=== PATIENT | female | born 1990 | race Caucasian/White ===

== ENCOUNTER 2017-10-14 13:05 | Emergency (ER) | payer SELFPAY ==
[2017-10-14 13:13] VITALS: BMI 25.6
[2017-10-14 13:18] VITALS: BP 113/67; PULSE 86; RESP 20; TEMP 98.1; O2SAT 99
--- NOTE | 2017-10-14 15:25 | C.PDOC ---
History Of Present Illness 27 yr old female presents to the ER with complaints of left sided abdominal pain on and off for the past 1 week. Patient is a and approximately 19 weeks . Patient states she recently found out she was . Patient also reports of a rash to her inner thighs. Denies fever, chills, nausea, vomiting, dysuria, vaginal discharge or vaginal bleeding. Time Seen by Provider: 10/14/17 13:29 Chief Complaint (Nursing): Abdominal Pain History Per: Patient History/Exam Limitations: no limitations Onset/Duration Of Symptoms: Intermittent Episodes (1 week) Past Medical History Reviewed: Historical Data, Nursing Documentation, Vital Signs Vital Signs: Last Vital Signs Temp 98.1 F 10/14/17 13:13 Pulse 86 10/14/17 13:13 Resp 20 10/14/17 13:13 BP 113/67 10/14/17 13:13 Pulse Ox 99 10/14/17 15:29 - Medical History PMH: Anxiety, Asthma, Depression - [facility] Procedures DETOXIFICATION SERVICES FOR SUBSTANCE ABUSE TREATMENT (09/02/16) Family History: States: No Known Family Hx - Social History Hx Tobacco Use: Yes Hx Alcohol Use: No Hx Substance Use: No - Immunization History Hx Tetanus Toxoid Vaccination: No Hx Influenza Vaccination: No Review Of Systems Except As Marked, All Systems Reviewed And Found Negative. Constitutional: Negative for: Fever, Chills Gastrointestinal: Positive for: Abdominal Pain (left sided). Negative for: Nausea, Vomiting Genitourinary: Negative for: Dysuria, Vaginal Discharge, Vaginal Bleeding Skin: Positive for: Rash (to the inner thighs) Physical Exam - Physical Exam Appears: Non-toxic, No Acute Distress Skin: Warm, Dry, Rash (papular rashes noted medial aspect of bilateral thighs) Head: Atraumatic, Normacephalic Oral Mucosa: Moist Cardiovascular: Rhythm Regular, No Murmur Respiratory: Normal Breath Sounds, No Rales, No Rhonchi, No Stridor, No Wheezing Gastrointestinal/Abdominal: Soft, No Tenderness, No Guarding, No Rebound, Other (fundus approximately at the umbilicus level) Back: Normal Inspection, No CVA Tenderness Extremity: Normal ROM, No Swelling Neurological/Psych: Oriented x3, Normal Speech ED Course And Treatment O2 Sat by Pulse Oximetry: 99 (RA) Pulse Ox Interpretation: Normal Medical Decision Making Medical Decision Making: NOTE: Patient left before US was done. States she did not wish to wait for the US report. Disposition - Disposition Referrals: [facility] Elsie Sravani, [Non-Staff] - Disposition: HOME/ ROUTINE Disposition Time: 14:30 Condition: GOOD Additional Instructions: Thank you for letting us take care of you today. The emergency medical care you received today was directed at your acute symptoms. If you were prescribed any medication, please fill it and take as directed. It may take several days for your symptoms to resolve. Return to the Emergency Department if your symptoms worsen, do not improve, or if you have any other problems. Please contact your doctor or call one of the physicians/clinics you have been referred to that are listed on the Patient Visit Information form that is included in your discharge packet. Bring any paperwork you were given at discharge with you along with any medications you are taking to your follow up visit. Our treatment cannot replace ongoing medical care by a primary care provider (PCP) outside of the emergency department. Thank you for allowing the [facility] team to be part of your care today. Follow up with your doctor in 3-4 days for re-evaluation and further management. Prescriptions: Cephalexin [cephalexin] 500 mg PO Q8 #21 cap Instructions: Folliculitis (ED) Forms: [employer] (Bengali) - Clinical Impression Clinical Impression: Folliculitis - Scribe Statement The provider has reviewed the documentation as recorded by the Candelaria Ly Provider Attestation: All medical record entries made by the Candelaria were at my direction and personally dictated by me. I have reviewed the chart and agree that the record accurately reflects my personal performance of the history, physical exam, medical decision making, and the department course for this patient. I have also personally directed, reviewed, and agree with the discharge instructions and disposition.
== END 2017-10-14 15:06 | disposition home or self-care (01) ==
LOC: C.ER 13:05
DX: O26.892 Other specified pregnancy related conditions, second trimester (principal); Z3A.19 19 weeks gestation of pregnancy; L73.9 Follicular disorder, unspecified

== ENCOUNTER 2018-02-23 13:00 | Emergency (ER) | payer MEDICAID ==
[2018-02-23 14:04] VITALS: BMI 31.1
[2018-02-23 15:00] LABS: SQUAMOUS EPITHIAL 1 /hpf (0-5); URINE BACTERIA MANY (<OCC); URINE BILIRUBIN NEGATIVE (NEGATIVE); URINE BLOOD 1+ (NEGATIVE); URINE CLARITY Hazy (Clear); URINE COLOR Yellow (YELLOW); URINE GLUCOSE (UA) NORMAL (Normal); URINE LEUKOCYTE ESTERASE 1+ Leu/uL (Negative); URINE PROTEIN NEGATIVE (NEGATIVE); URINE UROBILINOGEN NORMAL mg/dL (0.2-1.0)
--- NOTE | 2018-02-23 15:14 | OBHP ---
Datetime: 02/23/2018 14:17 IP Adm Impression: Term, intrauterine IP Admit Plan: Observation/Evaluation Admit Comment, IP Provider: [id number]@ 38 weeks presents today with complaints of maternal discomfor t for the past 2 days. Pt states that she did not get for the last 3 months because she was incarcerated. PT denies any vaginal bleeding or leaking of fluid. PNC: no care for the last 3 months POBHx: none PGYNHx: no hx of stds PSHx: C/S x 2 2003 C/S #8 2005 C/S #8 Social Hx: on methadone PMHx: heroin abuser. Meds: methadone ALL; NKDA. A/P: 28 @ 38 weeks by EDC March 12 here with maternal discomfort. 1) VSS: afebrile. 2) No contractions. 3) IV hydration. 4) closed/long/hi 5) Category 1 tracing. 6) UA-> +UTI script for keflex given to the patient. 7) IV hydrate pt, recheck in one hour. and no cervical change then discharge home. 8) Pt to get care this week. 9) Return 39 weeks for repeat C/S. 10) discharge home. Pelvic Type - PN: Adequate Extremities - PN: Normal Abdomen - PN: Normal Back - PN: Normal Breast - PN: Normal Lungs - PN: Normal Heart - PN: Normal Thyroid - PN: Normal Neurologic - PN: Normal HEENT - PN: Normal General - PN: Normal FHR - Baseline A Provider: 150 Membranes, Provider: Ruptured Comments, ACOG Physical Exam: SVE: closed/long/hi Gestation - Est Wks by US: 38.0 EGA AdmitDate IP: 38.0 Vital Signs Provider: Reviewed IP Chief Complaint: Maternal discomfort NICHD Variability Prov Fetus A: Moderate 6-25bpm NICHD Accel Fetus A IP Provider: 15X15 FHR Category Provider Fetus A: Category I NICHD Decel Fetus A IP Provider: None Dilatation, Provider: closed Genitourinary Exam: Normal DTRs - PN: Normal
[2018-02-23] MEDS ORDERED: Lactated Ringer's 1,000 ML IV ONE (15:42)
[2018-02-23 19:56] VITALS: BP 119/78; PULSE 70; RESP 18; TEMP 97.6; O2SAT 97
== END 2018-02-23 15:20 | disposition home or self-care (01) ==
LOC: C.EROB 13:00
DX: O26.93 Pregnancy related conditions, unspecified, third trimester (principal); Z3A.38 38 weeks gestation of pregnancy

== ENCOUNTER 2018-03-02 07:30 | Inpatient (IN) | payer MEDICAID ==
[2018-03-02] MEDS ORDERED: Lactated Ringer's 1,000 ML IV SCH (08:15)
[2018-03-02 10:07] LABS: BASO # 0.1 K/uL (0.0-0.2); HEMOGLOBIN 13.4 g/dL (11.0-16.0); MEAN CORPUSCULAR HEMOGLOBIN 28.1 pg (27.0-31.0)
[2018-03-02 10:16] LABS: BASO % 0.5 % (0.0-2.0); EOS # 0.2 K/uL (0.0-0.7); EOS % 2.3 % (0.0-4.0); LYMPH # 1.7 K/uL (1.0-4.3); LYMPH % 16.5 % (20.0-40.0); MEAN CELL VOLUME 83.1 fL (81.0-99.0); MEAN CORPUSCULAR HGB CONC 33.8 g/dL (33.0-37.0); MEAN PLATELET VOLUME 11.3 fL (7.2-11.7); MONO # 0.9 K/uL (0.0-0.8); NEUT # 7.5 K/uL (1.8-7.0); NEUT % 71.7 % (50.0-75.0); NRBC % 0.4 % (0.0-2.0); RBC 4.78 Mil/uL (3.80-5.20)
[2018-03-02 10:17] LABS: WHITE BLOOD COUNT 10.5 K/uL (4.8-10.8)
[2018-03-02 10:21] LABS: ALB/GLOB RATIO 0.9 (1.0-2.1); ALBUMIN 3.4 g/dL (3.5-5.0); ALT/SGPT 22 U/L (9-52); AST/SGOT 28 U/L (14-36); BLOOD UREA NITROGEN 4 mg/dL (7-17); CALCIUM 8.9 mg/dl (8.6-10.4); GFR AFRICAN-AMERICAN > 60; GFR NON-AFRICAN AMERICAN > 60
[2018-03-02 10:53] LABS: HEPATITIS B SURFACE AG Negative (NEGATIVE)
[2018-03-02 10:58] LABS: HEPATITIS A IGM NEGATIVE (NEGATIVE); HEPATITIS B CORE AB NEGATIVE (NEGATIVE)
[2018-03-02 11:09] LABS: SQUAMOUS EPITHIAL 4 /hpf (0-5); URINE BILIRUBIN NEGATIVE (NEGATIVE); URINE BLOOD 1+ (NEGATIVE); URINE CLARITY Clear (Clear); URINE COLOR Yellow (YELLOW); URINE GLUCOSE (UA) NORMAL (Normal); URINE LEUKOCYTE ESTERASE NEG Leu/uL (Negative); URINE PROTEIN NEGATIVE (NEGATIVE); URINE UROBILINOGEN NORMAL mg/dL (0.2-1.0)
--- NOTE | 2018-03-02 12:24 | US ---
PROCEDURE: HISTORY: LMP 06/01/2017 COMPARISON: None TECHNIQUE: Transabdominal scanning of the maternal pelvis and a 2nd/ 3rd trimester with image documentation FINDINGS: Fetus: Single intrauterine gestation heart rate: Present at 154 beats per minute presentation: Cephalic Placenta: Anteriorwithout previa or abruption Amniotic fluid : Normal appearing: anatomy: Limited due to late gestation. biometrics: Gestational age by ultrasound: 35 weeks 1 day 2 weeks 3 days Estimated weight: 2562 g 380 g 5 lb 10 oz 14 oz Maternal factors: Uterus: Unremarkable. No myometrial masses Cervix:3.3 cm length Free fluid: None Biophysical profile: Breathin Gross body movements: 2 Limb tone: 2 Amniotic Fluid: 2 Total biophysical profile: 04/12 IMPRESSION: Single intrauterine gestation with normal cardiac activity. presentation - cephalic. No previa . Biophysical profile 04/12
[2018-03-02 12:27] LABS: HEPATITIS C ANTIBODY REACTIVE (NEGATIVE)
[2018-03-02] MEDS ORDERED: Sodium Citrate/Citric Acid 15 ml Sol PO ONE (12:46)
[2018-03-02] MEDS ORDERED: Sodium Citrate/Citric Acid 15 ml Sol ONE (13:01)
[2018-03-02] MEDS ORDERED: cefOXitin IV 2 gm in Saline 2 GM/50 ML BAG IVPB ONE (13:10)
[2018-03-02] MEDS: cefOXitin 2 GM in Sodium Chloride 0.9% 100 ML IV SCH ×2 (13:13→22:13)
--- NOTE | 2018-03-02 13:23 | OBHP ---
Datetime: 03/02/2018 12:04 IP Adm Impression: No Active Labor IP Admit Plan: Observation/Evaluation Admit Comment, IP Provider: Evaluation of patient commenced at 0730 hours. Patient received in bed i n LDR#1, in NAD; FOB present 28 y.o. , LMP unsure, AMOR 03/09/18, EGA 39 weeks, per patient by ultrasound at approximately "6 months'. Patient presents for elective repeat C/S. (+) AFM; denies LOF, VB. Ctx. H/O herione ab use, currently on methadone. Last took methadone 2 days ago. Denies HAs, palpitaions, sweating, diar katarzyna, constipation. States has gone as long as 4 days without methadone. "I want to stop taking it, but they said I had to continue for the baby". care: Patient was incarcerated from 10/2017 and released 02/07/18. Has had no care since her release. Denies any issues while incarcerated. States had visits. States first ult rasound at "6 months; ... that's how they got my due date". At this time, other documented - related visit = Ob ED at , 02/23/18; diagnosed with UTI, given prescription for Keflex. Patient states took the meds as prescribed "all of them". P Ob: C/S x 2: both females. 2003, 8lbs; complicated by eclampsia ("I had the C/S because I had a seizure"). No other seizure activity since. Has never seen a neurologist. 2008, elective repeat, 8lb 7oz; no complications. Both at [facility]. 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 Denies h/o STIs, abnormal Pap, myomata PMH: eclampsia, 2003. Heroine abuse. Denies DM, HTN, asthma, cholesterol PSH: C/S x 2 NKDA Meds: PNV - last dose 0400 hours. Methadone 55 mg - last dose 02/27/18. (Verified with [facility], [facility], ) Soc Hx: denies tobacco, or EtOHuse. H/O heroine abuse age 24 through 10/2017. Currently lives with her mother and her 2 daughters. With FOB x 3 years. Unemployed Fam Hx:Mother alive 53 y.o. Father alive 58y.o. - both, no med issues. No known fam h/o cancer P.E.: as above. WD in NAD. Awake, alert, oriented to time, person and place. Pleasant and omar ative. FOB present Assessment: 28 y.ol P2, 39w by reported AMOR 03/09; h/o heroine abuse, now on methadone; S/P recent i ncarceration. No records available. category 1 tracing. Afebrile, vital signs stable. D/W p atient will obtain the foloowng to determine if will proceed with surgery: 1) continuous EFM 2) contact [facility] for records. To this end, patient to sign consent for release of inform ation/records 3) obtain Ob ultrasound 4) speak with Dr. Petit at [facility] 5) IV hydration. Patient expressed an understanding and agreed. Addendum: 1250 hours: - todays USG: EGA 35w 1d, EFW 2562 grams (5lb 10oz); anterior placenta without praevia. BPP 8/8 - labs noted for H/H 13.4/ A (+). Hep C Reactive. All else wnl/(-) - Obtained records from [facility]'s clinic: Patient had 2 visits, 12/15 and 01/05. Ob sonon 12/15/17 at 28w 3d, AMOR 03/06/18. labs 01/05: A(+), antibody scr een (-); Hgb AA; CF (-); RPR - NR; HIV (-); Rubella immune; HBs Ag (-); Hct 39%; platelets 222. Assessment: In light of the confirmatory Ob ultrasound, confirming is 39w 1d, with h/o 2 prevoius C/S, will proceed with elective repeat C/S at this time. This was discussed wiht patient, w abhijit is happy. R/B/C discussed. consents signed, dated, witnessed and placed in chart. Patient is clini jayne stable. Plan: 1) Admit 2) Abdominal prep and shave 3) Fam togravity 4) Mefoxin data integration developer to O.R. 5) Notify peds 6) Notify anesthesia 7) admission labs (previously snet as part of labs) 8) Patient is data integration developer to O.R. Contraction Comments Provider: iregularly regular, every 6 minutes IP Hx Assessment: No Care EGA AdmitDate IP: 39.0 IP Chief Complaint: Scheduled Section Dilatation, Provider: 0 Effacement, Provider: 30 Station, Provider: -3
[2018-03-02] MEDS ORDERED: Oxytocin 10 Units/ml Inj ONE (13:26)
--- NOTE | 2018-03-02 13:44 | OBADHP ---
Datetime: 03/02/2018 12:04 IP Chief Complaint Other: H/O heroine abuse, on Methadone Admit Comment, IP Provider: Evaluation of patient commenced at 0730 hours. Patient received in bed i n LDR#1, in NAD; FOB present 28 y.o. , LMP unsure, AMOR 03/09/18, EGA 39 weeks, per patient by ultrasound at approximately "6 months'. Patient presents for elective repeat C/S. (+) AFM; denies LOF, VB. Ctx. H/O herione ab use, currently on methadone. Last took methadone 2 days ago. Denies HAs, palpitaions, sweating, diar katarzyna, constipation. States has gone as long as 4 days without methadone. "I want to stop taking it, but they said I had to continue for the baby". care: Patient was incarcerated from 10/2017 and released 02/07/18. Has had no care since her release. Denies any issues while incarcerated. States had visits. States first ult rasound at "6 months; ... that's how they got my due date". At this time, other documented - related visit = Ob ED at [facility], 02/23/18; diagnosed with UTI, given prescription for Keflex. Patient states took the meds as prescribed "all of them". P Ob: C/S x 2: both females. 2003, 8lbs; complicated by eclampsia ("I had the C/S because I had a seizure"). No other seizure activity since. Has never seen a neurologist. 2008, elective repeat, 8lb 7oz; no complications. Both at [facility]. 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 Denies h/o STIs, abnormal Pap, myomata PMH: eclampsia, 2003. Heroine abuse. Denies DM, HTN, asthma, cholesterol PSH: C/S x 2 NKDA Meds: PNV - last took 0400 hours. Methadone 55 mg - last dose 6/25/18. (Verified with [facility], [facility], ) Soc Hx: denies tobacco, or EtOHuse. H/O heroine abuse age 24 through 10/2017. Currently lives with her mother and her 2 daughters. With FOB x 3 years. Unemployed Fam Hx:Mother alive 53 y.o. Father alive 58y.o. - both, no med issues. No known fam h/o cancer P.E.: as above. WD in NAD. Awake, alert, oriented to time, person and place. Pleasant and omar ative. FOB present Assessment: 28 y.o. P2, 39w by reported AMOR 03/09; h/o heroine abuse, now on methadone; S/P recent i ncarceration. No records available. S/P treatment for UTI. Category 1 tracing. Afebrile, vi mariaelena signs stable. D/W patient will obtain the foloowng to determine if will proceed with surgery toda y: 1) continuous EFM 2) contact snf for records. To this end, patient to sign consent for release of record s 3) obtain Ob ultrasound 4) speak with Dr. Petit at [facility] 5) IV hydration. Patient expressed an understanding and agreed. Addendum: 1250 hours: - today's USG: EGA 35w 1d, EFW 2562 grams (5lb 10oz); anterior placenta without praevia. BPP 8/8 - labs noted for H/H 13.4/ A (+). Hep C Reactive. All else wnl/(-) - Obtained records from [facility]'s clinic: Patient had 2 visits, 12/15 and 01/05. Ob sono 12/15/17 at 28w 3d, AMOR 03/06/18. labs 01/05: A(+), antibody scre en (-); Hgb AA; CF (-); RPR - NR; HIV (-); Rubella immune; HBs Ag (-); Hct 39%; platelets 222. Assessment: In light of the confirmatory Ob ultrasound, is 39w 1d, with h/o 2 prevoius C /S, will proceed with elective repeat C/S at this time. This was discussed wiht patient, who is happy . R/B/C discussed. consents signed, dated, witnessed and placed in chart. Patient is clinically stabl e. Note: case D/W Dr. Petit at [facility]: as patient missed 2 days, give half regualr dose = 27.5 mg; this rounded down to 25 mg. This was D/W patient who expressed an understainding and agr ees. Plan: 1) Admit 2) Abdominal prep and shave 3) Fam togravity 4) Mefoxin convention manager to O.R. 5) Notify peds 6) Notify anesthesia 7) admission labs (previously snet as part of labs) 8) Patient is convention manager to O.R. 9 ) Methadone 25 mg p.o. x 1 now, and Q AM Pelvic Type - PN: Adequate Extremities - PN: Normal Abdomen - PN: Normal Back - PN: Normal Breast - PN: Normal Lungs - PN: Normal Heart - PN: Normal Thyroid - PN: Not Done Neurologic - PN: Normal HEENT - PN: Normal General - PN: Normal Presentation-Admit: Vertex FHR - Baseline A Provider: 140 Membranes, Provider: Intact Contraction Comments Provider: iregularly regular, every 6 minutes Comments, ACOG Physical Exam: Skin: (+) Healed/"old" "track [place]. (+) tattooes. Abdomen: Soft. gravid. healed Pfannenstiel scars. Fundal height 38 cm. All other systems reviewed - as per HPI Gestation - Est Wks by US: 39w 1d IP Hx Assessment: No Care Vital Signs Provider: Reviewed IP Chief Complaint: Scheduled Section NICHD Variability Prov Fetus A: Moderate 6-25bpm NICHD Accel Fetus A IP Provider: 15X15 FHR Category Provider Fetus A: Category I NICHD Decel Fetus A IP Provider: None Dilatation, Provider: 0 Effacement, Provider: 30 Station, Provider: -3 Genitourinary Exam: Normal DTRs - PN: Not Done EGA AdmitDate IP: 39.0 IP Adm Impression: No Active Labor IP Admit Plan: Observation/Evaluation
[2018-03-02] MEDS ORDERED: Bupivacaine HCl 0.5% PF (10 ml) Inj ONE (14:22)
[2018-03-02] MEDS ORDERED: Midazolam 2 MG/2 ML VIAL ONE ×3 (15:07→15:16)
[2018-03-02] MEDS ORDERED: Ketamine HCL 100 mg/ml INJ ONE (15:24)
[2018-03-02] MEDS ORDERED: Acetaminophen IV 1,000 MG in Premixed IV 1 EA IV PRN (16:32)
[2018-03-02] MEDS ORDERED: HYDROmorphone 0.5 mg/0.5 ml ISec IVP STA (17:42)
[2018-03-02] MEDS ORDERED: HYDROmorphone 0.2 mg/ml PCA 6 MG/30 ML SOL IV ONE (18:13)
[2018-03-02] MEDS ORDERED: HYDROmorphone 0.5 mg/0.5 ml ISec ONE (18:20)
[2018-03-02] MEDS ORDERED: Midazolam 2 MG/2 ML VIAL IVP ONE (20:14)
[2018-03-02] MEDS ORDERED: HYDROmorphone 0.5 mg/0.5 ml ISec IVP PRN (20:15)
--- NOTE | 2018-03-02 23:18 | OBDS ---
DELIVERY PERSONNEL Delivery Doctor: Vignesh Pink MD Scrub Nurse: Cecile Kaiser Brazing Machine Operator Helper: Debra Ibarra RN Anesthesiologist: Dr Strong MATERNAL INFORMATION Delivery Anesthesia: Spinal Medications in Delivery: oxytocin Estimated Blood Loss (ml): 1000 Maternal Complications: None Other Maternal Complications: none RN Comments: other personnel Dr Hollis Anesthesiologist Placenta to Pathology Provider Comments: Uncomplicated repeat C/S. Dense adhesion lower uterine segment to anterior abdom inal wall. Live female infant, weight 6lb 5oz; 's 9/9. Thick meconium liquor. Cord pH 7.27; bas e XS -8.3. Patient tolerated procedure well. Transferred to recovery n stable condition. EBL 1,000 mL U.O. 500 mL IVFs 1,500 mL: 40 units pitocin in 1st 1,000 mL; 20 units in subsequent litre bag Hemabate 250 mi crograms IM x 1 given. LABOR SUMMARY EDC: 03/09/2018 00:00 No. Babies in Womb: 1 LABOR INFORMATION Reason for Induction: Not Applicable Steroids Given: None Reason Steroids Not Administered: Not Applicable MEMBRANES Membranes Rupture Method: Artificial Rupture of Membranes: 03/02/2018 14:52 Length of Rupture (hrs): 0.03 Amniotic Fluid Color: Light Meconium Amniotic Fluid Amount: Moderate Amniotic Fluid Odor: None STAGES OF LABOR Stage 3 hrs: 0 Stage 3 min: 1 CSECTION DELIVERY Primary Indication: Repeat Elective CSection Urgency: Non Elective CSection Incidence: Repeat Labor: No Labor CSection Incision: Lower Uterine Transverse BABY A INFORMATION Delivery Date/Time: 03/02/2018 14:54 Method of Delivery: Born in Route : No : N/A Forceps: N/A Vacuum Extraction: N/A Shoulder Dystocia : No ASSISTED DELIVERY BABY A Vacuum/Forceps Comment: none SHOULDER DYSTOCIA BABY A Infant Delivery Date/Time: 03/02/2018 14:54 Shoulder Dystocia Comments: none PRESENTATION/POSITION BABY A Presentation: Cephalic Cephalic Presentation: Vertex Vertex Position: Left Occipital Anterior Breech Presentation: N/A PLACENTA INFORMATION BABY A Placenta Delivery Time : 03/02/2018 14:55 Placenta Method of Delivery: Spontaneous Placenta Status: Delivered SCORES BABY A Heart Rate 1 min: >100 bpm Resp Effort 1 min: Good Cry Reflex Irritability 1 min: Cough or Sneeze or Pulls Away Muscle Tone 1 min: Active Motion Color 1 min: Body Rice Tracts, Extremities Blue SCORE 1 MIN: 9 Heart Rate 5 min: >100 bpm Resp Effort 5 min: Good Cry Reflex Irritability 5 min: Cough or Sneeze or Pulls Away Muscle Tone 5 min: Active Motion Color 5 min: Body Rice Tracts, Extremities Blue SCORE 5 MIN: 9 INFANT INFORMATION BABY A Gestational Age at Delivery: 39.0 Gestational Status: Term Outcome : Liveborn Condition : Stable Sex: Female IDENTIFICATION/MEDS BABY A ID Band Number: [id number] ID Band Location: Left Leg; Left Arm Sensor Applied: Yes Sensor Number: [id number] Sensor Location : Cord Clamp Vitamin K Given : Not Given Erythromycin Given: Not Given WEIGHT/LENGTH BABY A Birthweight (gms): 2855 Weight (lb): 6 Infant Weight (oz): 5 Infant Length Inches: 18.50 Infant Length cms: 47.0 CORD INFORMATION BABY A No. Cord Vessels: 3 Nuchal Cord : N/A Nuchal Cord Other: none Infant Cord pH Baby Venous: 7.27 Cord Blood Taken: Yes Suction: Mouth; Nose ASSESSMENT BABY A Complications: None Care By: Dr Hernandez Transferred To: [facility]
--- NOTE | 2018-03-02 23:24 | PCM.SURG1 ---
Surgeon's Initial Post Op Note - Surgeon's Notes Surgeon: Melissa Pink MD Surveillance Observer: Sam Sanchez MD Type of Anesthesia: Spinal Anesthesia Administered By: James Sidhu MD Pre-Operative Diagnosis: 39 weeks 1 days gestation; insufficient care; previous section x 2; h/o heroine abuse on methadone. Operative Findings: Dense adhesion of lower uterine segment to anteroir abdominal wall. Thick meconium liquor. Live female infant, VIKA position, weight 6lb 5oz, Apgars 9/9. Cord pH 7.27; base XS -8.3. 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 Otherwise grossly normal uterus and ovaries and fallopian tubes, bilaterally Post-Operative Diagnosis: Same; pelvic adhesion Operation Performed: Transverse incision, repeat C/S; lysis of adhesion. Specimen/Specimens Removed: Placenta Estimated Blood Loss: EBL {In ML}: 1,000 (U.O. 500 mL; IVFs 1,500 mL with a total of 60 units pitocin. Hemabate 250 micrograms IM x 1 also given) Blood Products Given: N/A Drains Used: No Drains Post-Op Condition: Good Date of Surgery/Procedure: 03/02/18 Time of Surgery/Procedure: 16:00
[2018-03-02] MEDS ORDERED: Oxycodone/Acetaminophen 5/325 mg Tab PO PRN (23:49)
[2018-03-03] MEDS ORDERED: cefOXitin IV 2 gm in Saline 2 GM/50 ML BAG IVPB ONE (05:36)
[2018-03-03] MEDS: cefOXitin 2 GM in Sodium Chloride 0.9% 100 ML IV SCH (05:55)
--- NOTE | 2018-03-03 07:42 | OP ---
PROCEDURE DATE: 03/02/2018 SURGEON: Melissa Pink MD CLINICAL PSYCHOLOGY PROFESSOR: Sam De La Rosa MD ANESTHESIOLOGIST: James Sidhu MD TYPE OF ANESTHESIA Spinal. PREOPERATIVE DIAGNOSES: 39 weeks and 1 day gestation, insufficient care, previous section x2 with a history of heroin abuse, on methadone. POSTOPERATIVE DIAGNOSES: 39 weeks and 1 day gestation, insufficient care, previous section x2 with a history of heroin abuse, on methadone; pelvic adhesions. OPERATIVE FINDINGS: Dense adhesions of the lower uterine segment to the anterior abdominal wall, thick meconium liquor. A live female from the left occipital anterior position. Weight was 6 pounds 5 ounces, Apgars 9 at 1 and 5 minutes respectively. Cord pH of 7.27 with a base excess of -8.3. There was a 4 x 4 x 3 cm subserosal myoma located posterior right frontal lateral. Otherwise, grossly normal uterus, and grossly normal ovaries and fallopian tubes bilaterally. OPERATION PERFORMED: Transverse incision, repeat section with lysis of adhesions. SPECIMENS: The placenta was submitted to pathology. ESTIMATED BLOOD LOSS: 1000 mL. URINE OUTPUT: 500 mL of clear urine. INTRAVENOUS FLUIDS: 1500 mL of lactated Ringer's. A total of 60 units of Pitocin was administered, Hemabate 250 mcg IM was also given. BLOOD PRODUCTS: None. COMPLICATIONS None. DESCRIPTION OF PROCEDURE: The patient was taken to the operating room after having obtained the informed consent for the anticipated procedure. This included discussion of possible risks and complications including but not limited to infection requiring additional antibiotics, hemorrhage requiring blood transfusion, repair of any damage to internal organs, possible hysterectomy. The patient expressed understanding. No questions were offered. Consents were signed, dated, witnessed, and placed in the chart. Prior to being transported to the operating room, the patient received Mefoxin 2 gm. Also of note, approximately 1-1/2 hours prior to the procedure, the patient received a daily dose of methadone 25 mg p.o. x1. The patient was then transferred to the operating room, she was placed on the operating room table, and while in a sitting position, spinal anesthesia was administered without incident. She was immediately repositioned into a supine position, and the abdomen was prepped in the usual sterile fashion. The patient was then subsequently draped in usual sterile fashion. After assuring an adequate level of anesthesia using the scalpel, Pfannenstiel incision was performed to the previous scar. The incision was carried down through the subcutaneous tissue using the Bovie electrocautery. The fascia was identified. It was nicked in the midline, and the incision was extended bilaterally also using the Bovie electrocautery. The rectus muscles dissected off the overlying fascia. Using a scalpel, the rectus muscle was in the midline. The parietal peritoneum was entered via sharp dissection. Upon entering the uterine cavity and after deciding to not to take down the full extent of the adhesion in order to facilitate more room, bilateral Maylard procedure was performed on the rectus muscles. Upon entry and with initial palpation of the surface of the parietal peritoneum that was abutting the uterus, dense adhesion was noted to be at the level of the lower uterine segment and to the anterior abdominal wall. Superiorly, there were no adhesions. The decision was made to not take down the entire adhesive band but one small portion of lysis of adhesions was performed. Therefore, at about the level of the body of the uterus, a transverse incision was made. The uterine cavity was then entered and amniotomy was performed and a thick piece of meconium liquor was noted. Atraumatic delivery of the ensued. On the operative field, umbilical cord was doubly clamped and cut, and as the baby was crying vigorously enough, suction of the mouth and nares was performed. The was handed off the operative field to the geothermal production manager in attendance. A segment of the umbilical cord was obtained for cord pH with results as above. The placenta was then delivered by manual extraction. It was grossly within normal limits. It was submitted to pathology for evaluation. The uterus was then exteriorized for closure. This was done in two layers using 0 Vicryl. The first layer was in a running interlocking fashion. The second layer also within running interlocking fashion. Additional sutures using 0 Biosyn were used to assure hemostasis in interrupted stitches along the uterine incision. Examination of the posterior aspect of the uterus was then performed and the findings of the myoma as described above was noted. Copious irrigation was performed. After copious irrigation was performed, attention was then redirected to the incision, it was noted to be hemostatic and the uterus was returned to the abdominal cavity. The paracolic gutters were cleared of all debris, and the decision was made to infuse FloSeal along the uterine incision. Attempts to reapproximate the Maylard incision were initially unsuccessful. Hence, the parietal peritoneum was incorporated in order to appropriately reapproximate the rectus muscles along the Maylard incision, secondarily the parietal peritoneum was then closed in the midline. The rectus muscle was also reapproximated using 2-0 chromic in midline. After assuring adequate hemostasis, the fascia was reapproximated using 0 Vicryl in two halves in a running fashion. The subcutaneous tissue was reapproximated using plain catgut in a running fashion and the skin was reapproximated using surgical clips. The patient was then repositioned in a frog-leg manner. An uterine bimanual exploration was performed. The cervix had been dilated to approximately 1 cm. It was emptied of all additional clots and debris. The uterus was firm, approximately one fingerbreadth above the umbilicus. The patient tolerated the procedure well. She was transferred back to [facility]. The infant had been transferred to [facility]. Both the patient and infant were in stable condition. Melissa Pink MD
[2018-03-03 08:30] LABS: MEAN CELL VOLUME 82.5 fL (81.0-99.0); MEAN CORPUSCULAR HEMOGLOBIN 27.8 pg (27.0-31.0); MEAN CORPUSCULAR HGB CONC 33.7 g/dL (33.0-37.0); MEAN PLATELET VOLUME 10.7 fL (7.2-11.7); RBC 3.72 Mil/uL (3.80-5.20); RED CELL DISTRIBUTION WIDTH 12.9 % (11.5-14.5); WHITE BLOOD COUNT 15.1 K/uL (4.8-10.8)
[2018-03-03 08:37] LABS: HEMOGLOBIN 10.4 g/dL (11.0-16.0)
[2018-03-03] MEDS: Prenatal Multivit/Folic Acid/Iron Tab PO SCH (10:14)
[2018-03-03] MEDS: Simethicone 80 mg Chewtab PO SCH ×3 (10:15→17:54)
--- NOTE | 2018-03-03 13:15 | PCM.PSYCH ---
Initial Psychiatric Evaluation - Initial Psychiatric Evaluation Type of Admission: Voluntary Legal Status: Capacity Chief Complaint (in patient's own words): "I am withdrawing" History of Present Illness and Precipitating Events: The patient is seen, chart reviewed and case discussed. This is a 28-year-old female, single with 3 children (minors but with GPs ), unemployed, lives with family. She just gave yesterday by , and a consultation was requested for her opiate dependence and being on methadone. Patient's nurse confirmed her methadone dose at [facility] as 55 mg, and the last dose on 02/27. She skipped two doses but given 25 mg yesterday and today here at [facility]. She has been on methadone x6 months, denies heroin use since, but Utox is not available yet. She used to use cannabis and cocaine but denies them now No alcohol use One detox in [facility] in 2016, no rehab No psych symptoms, denies SI, HI, AVH or delusions. Past hx: Denies Medical hx: Denies Family psych hx: denies Current Medications: Active Medications Generic Name Dose Route Start Last Admin Trade Name Freq PRN Reason Stop Dose Admin Hydromorphone HCl 1 mg 03/02/18 20:15 03/03/18 02:57 Dilaudid IVP 1 mg ONCE PRN Administration Pain, moderate (4-7) Hydromorphone/Sodium Chloride 6 mg 03/02/18 17:34 03/03/18 00:35 Dilaudid Scrap Crane Operator IV 6 mg Q4H PRN Administration Pain, moderate (4-7) Protocol Lactated Ringer's 1,000 mls @ 125 mls/hr 03/02/18 08:15 Lactated Ringer's IV .Q8H RADHA Acetaminophen 1,000 mg/ 100 mls @ 400 mls/hr 03/02/18 16:32 03/02/18 17:03 Miscellaneous IV 03/03/18 16:33 400 mls/hr Q6 PRN Administration Pain, moderate (4-7) Oxytocin 1,000 mls @ 125 mls/hr 03/02/18 23:45 Pitocin 20 Units In Lr IV 03/03/18 15:44 .Q8H RADHA Ibuprofen 600 mg 03/02/18 23:49 03/03/18 06:01 Motrin Tab PO 600 mg Q6H PRN Administration Pain, Mild (1-3) Methadone HCl 20 mg 03/03/18 14:00 Methadone PO 03/03/18 14:01 ONCE ONE Methadone HCl 40 mg 03/04/18 10:00 Methadone PO 03/05/18 10:01 DAILY RADHA Oxycodone/Acetaminophen 1 tab 03/03/18 13:13 Percocet 5/325 Mg Tab PO 03/05/18 23:50 Q6H PRN Pain, moderate (4-7) Multivit/Folic Acid/Iron 1 tab 03/03/18 10:00 03/03/18 10:14 PO 1 tab DAILY RADHA Administration Sennosides 17.2 mg 03/03/18 22:00 Senokot Tab PO HS RADHA Simethicone 80 mg 03/03/18 10:00 03/03/18 10:15 Mylicon Chew Tab PO 80 mg QID RADHA Administration Zolpidem Tartrate 5 mg 03/02/18 20:14 03/03/18 01:08 Ambien PO 5 mg HS PRN Administration Insomnia Zolpidem Tartrate 5 mg 03/03/18 03:34 03/03/18 03:57 Ambien PO 5 mg HS PRN Administration Insomnia Past Psychiatric History - Past Psychiatric History Previous Treatment History: None Pertinent Medical Hx (Current Medical&Sleep Prob, Allergies): Allergies Allergy/AdvReac Type Severity Reaction Status Date / Time No Known Allergies Allergy Verified 10/14/17 13:12 Cephalexin [cephalexin] 500 mg PO Q8 #21 cap 10/14/17 Multivit/Folic Acid/I [ Plus] 1 tab PO DAILY 10/14/17 Review of Systems - Neurological Neurological: UNREMARKABLE - Psychiatric Psychiatric: Abnormal Sleep Pattern, Anxiety. absent: Depression, Hallucinations, Homicidal Ideation, Panic Attacks, Suicidal Ideation Mental Status Examination - Personal Presentation Personal Presentation: Looks stated age - Affect Affect: Broad - Motor Activity Motor Activity: Calm - Reliability in Providing Information Reliability in Providing Information: Good - Speech Speech: Organized - Mood Mood: Anxious - Formal Thought Process Formal Thought Process: No Impairment - Cognitive Functions Orientation: Person, Place, Situation, Time Sensorium: Alert Attention/Concentration: Attentive Estimate of Intelligence: Average Judgement: Intact, as evidence by: Insight regarding need for hospitalization Memory: Recent intact, as evidence by: Ability to recall events of the day, Remote intact, as evidenced by: Ability to recall historical events - Risk Risk: Withdrawal, Diminished functioning - Strength & Assets Inventory Strength & Assets Inventory: Cooperative - Limitations Limitations: Other DSM 5 DX - DSM 5 DSM 5 Diagnosis: Opioid use d/o, severe on maintenance cocaine use d/o - in remission Cannabis use d/o - in remission - Recommended/Plan of Treatment Treatment Recommendations and Plan of Treatment: - Patient wants to taper off methadone in her methadone clinic starting next week. - We will keep patient on 40 mg maintenance, rather than 55 mg, because she skipped 2 days of maintenance on and , but also she takes prn Percocet sometimes. - Monitor for opioid overdose. Her nurse is made aware. - Continue other medications, support and psychoeducation - [facility]. - Please do UDS (Utox) stat and consider DCPP referral if she is positive for cocaine, cannabis, or any opioid that was not administered here (may need confirmation). Psych will sign off
[2018-03-03 14:56] LABS: BARBITURATES, UR NEGATIVE (NEGATIVE); BENZODIAZEPINES, UR NEGATIVE (NEGATIVE); PHENCYCLIDINE, UR NEGATIVE (NEGATIVE)
[2018-03-03 14:58] LABS: OPIATES, UR POSITIVE (NEGATIVE)
[2018-03-03] MEDS: Oxycodone/Acetaminophen 5/325 mg Tab PO PRN (17:53)
[2018-03-04] MEDS: Simethicone 80 mg Chewtab PO SCH ×3 (00:33→22:29)
--- NOTE | 2018-03-04 01:09 | OBPPN ---
Datetime: 03/03/2018 11:10 PP Pain Prov: Within normal limits PP Nausea Prov: Denies PP Flatus Prov: Yes PP BM Prov: No PP Breasts Prov: Not Done PP Heart Prov: Normal PP Lungs Prov: Normal PP Abdomen/Uterus Prov: Normal PP Lochia Prov: Normal PP Vulva/Perineum Prov: Not Done PP CVA Tenderness Prov: Normal PP Extremities Prov: Normal PP C/S Incision Prov: Normal PP Progress Prov: Not Applicable PP Comments Phys Exam Prov: Fundus firm PP Impression Prov: Pain PP Plan Prov: Continue present management PP Progress Note Prov: POD # 1 Satisfactory recovery but c/o's of pain and requesting more medication Psych consultation was ordered to assess need to adjust Methadone doses before increasing Narcotic s Incision clean and dry and healing well Pt ambulating Advance care Vital Signs Provider PP: Reviewed
[2018-03-04] MEDS: Oxycodone/Acetaminophen 5/325 mg Tab PO PRN ×2 (06:03→14:31)
[2018-03-04] MEDS: Prenatal Multivit/Folic Acid/Iron Tab PO SCH (09:23)
[2018-03-04] MEDS: Methadone 40 mg Tab PO SCH (09:24)
[2018-03-05] MEDS: Oxycodone/Acetaminophen 5/325 mg Tab PO PRN ×3 (00:41→13:16)
[2018-03-05] MEDS: Prenatal Multivit/Folic Acid/Iron Tab PO SCH (09:30)
[2018-03-05] MEDS: Simethicone 80 mg Chewtab PO SCH ×3 (09:30→22:18)
[2018-03-05] MEDS: Methadone 40 mg Tab PO SCH (09:32)
[2018-03-05] MEDS ORDERED: Magnesium Citrate Oral SOL (300 ml) PO ONE (12:16)
[2018-03-05] MEDS ORDERED: guaiFENesin 100 mg/5 ml Syrup UD PO PRN (12:42)
[2018-03-05] MEDS: Amoxicillin-Clav 875-125 mg Tab PO SCH ×2 (13:13→22:19)
--- NOTE | 2018-03-05 13:21 | OBPPN ---
Datetime: 03/05/2018 13:05 PP Pain Prov: Abnormal PP Pain Prov comment: c/o's of painful urination PP Nausea Prov: Denies PP Flatus Prov: Yes PP BM Prov: No PP Nausea Prov comment: productive cough PP BM Prov comment: Constipation PP Breasts Prov: Not Done PP Heart Prov: Normal PP Lungs Prov: Abnormal PP Abdomen/Uterus Prov: Normal PP Lochia Prov: Normal PP Vulva/Perineum Prov: Normal PP CVA Tenderness Prov: Normal PP Extremities Prov: Normal PP C/S Incision Prov: Normal PP Progress Prov: Not Applicable PP Comments Phys Exam Prov: Incision clean and dry + bilateral base rhonchi greyish/greenish sputum, per patient Mild suprapubic tenderness PP Impression Prov: Pain PP Plan Prov: Antibiotic therapy PP Impression Other Prov: Probable Bronchitis,UTI,Constipation PP Plan Other Prov: CXR, UA with culture,Sputum culture PP Progress Note Prov: POD # 3. Claims pain not controlled with present regime with Methadone and Pe rcocet Probable Bronchitis and UTI. Ordered CXR, Sputum culture, UA with C_S, Augmentin po Encouraged to increase po water intake as well as ambulation in hallways Constipation and requesting laxative and Magnesium Citrate ordered Advance care IP PP Procedures: Antibiotics
--- NOTE | 2018-03-05 13:29 | RAD ---
HISTORY: Productive cough and bilateral ronchi COMPARISON: No prior. TECHNIQUE: Chest PA and lateral FINDINGS: LUNGS: Poor inspiration with low lung volumes, crowded bronchovascular markings and bibasilar atelectasis. The interstitial markings are also increased and coarsened with a few scattered peribronchial cuffing changes. Findings may represent sequela of reactive/ inflammatory airway disease or viral illness. PLEURA: No significant pleural effusion identified. No pneumothorax apparent. CARDIOVASCULAR: Normal. OSSEOUS STRUCTURES: No significant abnormalities. VISUALIZED UPPER ABDOMEN: Normal. OTHER FINDINGS: None. IMPRESSION: Poor inspiration with low lung volumes, crowded bronchovascular markings and bibasilar atelectasis. The interstitial markings are also increased and coarsened with a few scattered peribronchial cuffing changes. Findings may represent sequela of reactive/ inflammatory airway disease or viral illness.
[2018-03-05] MEDS ORDERED: Oxycodone/Acetaminophen 5/325 mg Tab PO PRN (18:33)
[2018-03-05] MEDS ORDERED: Nalbuphine HCL 10 mg/ml Ampule IM PRN (22:04)
[2018-03-05] MEDS: guaiFENesin 100 mg/5 ml Syrup UD PO SCH (22:22)
[2018-03-05] MEDS ORDERED: Nalbuphine HCL 10 mg/ml Ampule ONE (22:59)
[2018-03-06] MEDS: guaiFENesin 100 mg/5 ml Syrup UD PO SCH ×5 (02:30→17:58)
[2018-03-06 08:04] VITALS: RESP 20
[2018-03-06] MEDS: Amoxicillin-Clav 875-125 mg Tab PO SCH (09:59)
[2018-03-06] MEDS: Prenatal Multivit/Folic Acid/Iron Tab PO SCH (10:00)
[2018-03-06] MEDS ORDERED: Methadone 40 mg Tab PO SCH (10:00)
[2018-03-06] MEDS: Simethicone 80 mg Chewtab PO SCH ×3 (10:00→17:56)
--- NOTE | 2018-03-06 10:17 | OBPPN ---
Datetime: 03/06/2018 10:06 PP Pain Prov: Abnormal PP Pain Prov comment: Continue to have pain. Normal for the postn op period. PP Nausea Prov: Denies PP Flatus Prov: Yes PP BM Prov: No PP Breasts Prov: Normal PP Lungs Prov: Abnormal PP Abdomen/Uterus Prov: Normal PP Lochia Prov: Normal PP CVA Tenderness Prov: Abnormal PP Extremities Prov: Abnormal PP C/S Incision Prov: Normal PP Comments Phys Exam Prov: CVS- S1S2 RRR Lungs: BL Ronchi ABD: Soft, NT, Incision celan and dry Ext: Rt calf tendenress +2 BL edema PP Plan Prov: Continue present management; Antibiotic therapy PP Impression Other Prov: Productive cough; Upper resp Infection PP Plan Other Prov: Rt LE doppler and medical consult for URI PP Progress Note Prov: A/P: S/P c section Methadone use and ? opiod use- On methadone in house Now with URI with productive cough Medical consult for the above reason Rt LE doppler for R/O DVT Plan to DC home later today after cleared by Medicine After DC home pt needs to f./u at one of the clinics for incision check and post visit and at the Methadone clinic. Vital Signs Provider Details PP: Lungs: BL ronchi Extr: Rt calf tenderness, +2 BL edema
[2018-03-06] MEDS ORDERED: Bisacodyl 5mg EC Tab PO ONE (10:43)
[2018-03-06] MEDS ORDERED: Oxycodone/Acetaminophen 5/325 mg Tab PO PRN (11:45)
--- NOTE | 2018-03-06 14:24 | CP.PCM.CON ---
<Deborah Carbajal - Last Filed: 03/06/18 14:12> History of Present Illness - History of Present Illness History of Present Illness: PGY-[address] Reid Ms. Garcia is a 28yo female Hx substance abuse on Methadone presents with worsening productive cough x4 days. She is s/p repeat day 4, and unable to expel phlegm. Admits to chest congestion, fever, chills, weakness, shortness of breath, abdominal pain associated with surgical brianna. Denies sore throat, chest pain, nausea, vomiting, diarrhea, constipation, dizziness. Patient denies recent travel or sick contacts. Review of Systems - Constitutional Constitutional: Fatigue, Fever, Lethargy - EENT Eyes: absent: Change in Vision Ears: absent: Abnormal Hearing, Dizziness Nose/Mouth/Throat: Nasal Congestion. absent: Sinus Pain, Dry Mouth, Sore Throat , Neck Pain - Cardiovascular Cardiovascular: absent: Chest Pain, Chest Pain at Rest, Palpitations - Respiratory Respiratory: Cough, Wheezing - Gastrointestinal Gastrointestinal: absent: Change in Bowel Habits - Genitourinary Genitourinary: absent: Change in Urinary Stream - Neurological Neurological: absent: Abnormal Hearing, Abnormal Movements Past Patient History - Past Medical History & Family History Past Medical History?: Yes - Past Social History Smoking Status: Light Smoker < 10 Cigarettes Daily - CARDIAC Hx Hypertension: No - PULMONARY Hx Asthma: Yes - NEUROLOGICAL Hx Seizures: No - HEENT Hx HEENT Problems: No - RENAL Hx Chronic Kidney Disease: No - ENDOCRINE/METABOLIC Hx Endocrine Disorders: No - HEMATOLOGICAL/ONCOLOGICAL Hx Human Immunodeficiency Virus (HIV): No - INTEGUMENTARY Hx Dermatological Problems: No - MUSCULOSKELETAL/RHEUMATOLOGICAL Hx Musculoskeletal Disorders: No Hx Falls: No - GASTROINTESTINAL Hx Gastrointestinal Disorders: No - GENITOURINARY/GYNECOLOGICAL Hx Sexually Transmitted Disorders: No - PSYCHIATRIC Hx Anxiety: Yes Hx Depression: Yes Hx Substance Use: No - SURGICAL HISTORY Hx Section: Yes (X2) - ANESTHESIA Hx Anesthesia: Yes Hx Anesthesia Reactions: No Meds Allergies/Adverse Reactions: Allergies Allergy/AdvReac Type Severity Reaction Status Date / Time No Known Allergies Allergy Verified 10/14/17 13:12 - Medications Medications: Current Medications Amoxicillin/Clavulanate Potassium (Augmentin 875 Mg-125 Mg Tab) 1 tab PO Q12 RADHA PRN Reason: Protocol Last Admin: 03/06/18 09:59 Dose: 1 tab Guaifenesin (Robitussin) 100 mg PO Q4H [facility] Last Admin: 03/06/18 10:07 Dose: 100 mg Ibuprofen (Motrin Tab) 600 mg PO Q6 PRN PRN Reason: Pain Last Admin: 03/06/18 08:11 Dose: 600 mg Methadone HCl (Methadose) 40 mg PO DAILY [facility] Last Admin: 03/06/18 09:59 Dose: 40 mg Oxycodone/Acetaminophen (Percocet 5/325 Mg Tab) 1 tab PO Q6H PRN PRN Reason: Pain, moderate (4-7) Stop: 03/09/18 11:46 Last Admin: 03/06/18 12:31 Dose: 1 tab Multivit/Folic Acid/Iron () 1 tab PO DAILY [facility] Last Admin: 03/06/18 10:00 Dose: 1 tab Sennosides (Senokot Tab) 17.2 mg PO HS [facility] Last Admin: 03/05/18 22:20 Dose: 17.2 mg Simethicone (Mylicon Chew Tab) 80 mg PO QID [facility] Last Admin: 03/06/18 10:00 Dose: 80 mg Zolpidem Tartrate (Ambien) 5 mg PO HS PRN PRN Reason: Insomnia Last Admin: 03/05/18 22:19 Dose: 5 mg Physical Exam - Constitutional Appears: Well, No Acute Distress - Head Exam Head Exam: ATRAUMATIC, NORMAL INSPECTION, NORMOCEPHALIC - Eye Exam Eye Exam: EOMI, Normal appearance, PERRL - ENT Exam ENT Exam: Mucous Membranes Moist, Normal Exam - Respiratory Exam Respiratory Exam: Wheezes Additional comments: inspiratory wheezes bilaterally - Cardiovascular Exam Cardiovascular Exam: REGULAR RHYTHM, +S1, +S2 - GI/Abdominal Exam GI & Abdominal Exam: Normal Bowel Sounds, Soft, Tenderness Additional comments: brianna in place. healing well. - Extremities Exam Extremities exam: Positive for: full ROM, normal inspection - Psychiatric Exam Psychiatric exam: Normal Affect, Normal Mood - Skin Skin Exam: Dry, Intact, Normal Color, Warm Results - Vital Signs Recent Vital Signs: Last Vital Signs Temp 99.1 F 03/06/18 08:02 Pulse 80 03/06/18 08:02 Resp 20 03/06/18 08:02 BP 113/76 03/06/18 08:02 Pulse Ox 96 03/06/18 08:02 - Labs Result Diagrams: 03/03/18 08:22 03/02/18 10:00 Assessment & Plan - Assessment and Plan (Free Text) Plan: 1) URI Stable, afebrile Leukocytosis likely reactive secondary to recent surgery Chest XR (03/05/18): increased interstitial markings, coarsened with a gew scattered peribronchial cuffing changes. Sputum culture (03/05/18): rare polymorphonuclear WBCs, few epithelial cells, fewe gram positive cocci in pairs. Continue Augmentin/clavulanate 1 tab po bid to complete 5 day course Robitussin as needed for cough Continue incentive spirometer use Encourage fluid intake and ambulation Patient to f/u with [facility] for medical f/u and staple removal within 1 week -appointment made for 02/08/18 at 9am If symptoms worsen, please return to nearest ER Patient medically cleared for discharge to home 2) Hx Substance Abuse on Methadone Methadone 40mg po daily Patient advised not to breastfeed while on methadone Encouraged not to smoke cigarettes. Deborah Carbajal PGY-1. Plan discussed with Dr. Reid. - Date & Time Date: 03/06/18 Time: 14:35 <Jay Reid - Last Filed: 03/07/18 07:15> Results - Vital Signs Recent Vital Signs: Last Vital Signs Temp 99.1 F 03/07/18 01:29 Pulse 80 03/07/18 01:29 Resp 20 03/07/18 01:29 BP 113/76 03/07/18 01:29 Pulse Ox 96 03/07/18 01:29 - Labs Result Diagrams: 03/03/18 08:22 03/02/18 10:00 Attending/Attestation - Attestation I have personally seen and examined this patient.: Yes I have fully participated in the care of the patient.: Yes I have reviewed all pertinent clinical information: Yes Notes (Text): Patient was seen and examined by me. Has productive cough and fever Discussed to continue antibiotics,not breast feeding on methadone,ambulate and drink liquids to hydrate. asked to follow medical clinic Assessment and the plan discussed with the resident and I agree with the documentation 03/07/18 07:13
--- NOTE | 2018-03-06 17:35 | VASCLAB ---
PROCEDURE: Right Lower Extremity Venous Duplex Exam. HISTORY: Calf tenderness,post PRIORS: None. TECHNIQUE: Right common femoral, femoral, popliteal and posterior tibial, peroneal and great saphenous veins were evaluated. Flow was assessed with color Doppler, compressibility, assessment of phasic flow and augmentation response. Report prepared by [place] Don RDCS, RVS FINDINGS: RIGHT: 1. Common Femoral Vein: 1.1. Compressibility - Fully compressible: Thrombus - None: Flow - Phasic: Augmentation -Normal: Reflux - None. 2. Femoral Vein: 2.1. Compressibility - Fully compressible: Thrombus - None: Flow - Phasic: Augmentation -Normal: Reflux - None. 3. Popliteal Vein: 3.1. Compressibility - Fully compressible: Thrombus - None: Flow - Phasic: Augmentation -Normal: Reflux - None. 4. Posterior Tibial Vein: 4.1. Compressibility - Fully compressible: Thrombus - None: Flow - Phasic: Augmentation -Normal: Reflux - None. 5. Peroneal Vein: 5.1. Compressibility - Fully compressible: Thrombus - None: Flow - Phasic: Augmentation -Normal: Reflux - None. 6. Great Saphenous Vein: 6.1. Compressibility - Fully compressible: Thrombus -None: Flow - Phasic: Augmentation - Normal: Reflux - None. OTHER FINDINGS: IMPRESSION: No evidence of deep or superficial vein thrombosis of the right lower extremity with excellent venous flow. Normal valve function noted of the right side. Normal venous flow noted in the left common femoral vein.
[2018-03-07 01:30] VITALS: BP 113/76; PULSE 80; TEMP 99.1; O2SAT 96
== END 2018-03-06 21:15 | disposition home or self-care (01) | DRG 765 ==
LOC: C.EROB 07:30 → EEVIPCON 12:45 → C.4D 12:45 → C.4M 20:00
PROVIDERS: ADMIT Obstetrics & Gynecology; ATTEND Obstetrics & Gynecology
PROC: 10D00Z1 Extraction of Products of Conception, Low, Open Approach (ICD-10-PCS; principal; 2018-03-02)
PROC: 0DNW0ZZ Release Peritoneum, Open Approach (ICD-10-PCS; 2018-03-02)
PROC: HZ81ZZZ Medication Management for Substance Abuse Treatment, Methadone Maintenance (ICD-10-PCS; 2018-03-02)
DX: O34.211 Maternal care for low transverse scar from previous cesarean delivery (principal); O75.3 Other infection during labor; O99.324 Drug use complicating childbirth; F11.20 Opioid dependence, uncomplicated; O65.5 Obstructed labor due to abnormality of maternal pelvic organs; O77.0 Labor and delivery complicated by meconium in amniotic fluid; N39.0 Urinary tract infection, site not specified; N73.6 Female pelvic peritoneal adhesions (postinfective); O98.42 Viral hepatitis complicating childbirth; O99.52 Diseases of the respiratory system complicating childbirth; J06.9 Acute upper respiratory infection, unspecified; O34.13 Maternal care for benign tumor of corpus uteri, third trimester; D25.2 Subserosal leiomyoma of uterus; B19.20 Unspecified viral hepatitis C without hepatic coma; J45.909 Unspecified asthma, uncomplicated; O99.334 Smoking (tobacco) complicating childbirth; F17.210 Nicotine dependence, cigarettes, uncomplicated; Z3A.39 39 weeks gestation of pregnancy; Z37.0 Single live birth

== ENCOUNTER 2018-03-11 18:21 | Emergency (ER) | payer SELFPAY ==
[2018-03-11 18:21] VITALS: BMI 31.1
[2018-03-11 18:43] VITALS: PULSE 93; RESP 18; TEMP 98.7; O2SAT 100
[2018-03-11] MEDS ORDERED: Bacitracin 500 Units/gm Oint Foilpak UD TOP ONE (19:20)
[2018-03-11] MEDS ORDERED: Bacitracin 500 Units/gm Oint Foilpak UD ONE (19:23)
--- NOTE | 2018-03-11 19:28 | C.PDOC ---
History Of Present Illness 28 year old female s/p on 03/02/18 presents to the ER for wound check/ staple removal. Patient reports having mild pain to the area. Denies fever or chills. Time Seen by Provider: 03/11/18 18:34 Chief Complaint (Nursing): Suture/Staple Removal History Per: Patient History/Exam Limitations: no limitations Onset/Duration Of Symptoms: Days Ago (03/02/18) Location Of Injury: Anterior: Abdomen Quality Of Symptoms: Painful. denies: Draining Recent travel outside of the [place]: No Past Medical History Reviewed: Historical Data, Nursing Documentation, Vital Signs Vital Signs: Last Vital Signs Temp 98.7 F 03/11/18 18:40 Pulse 93 H 03/11/18 18:40 Resp 18 03/11/18 18:40 BP Pulse Ox 100 03/11/18 20:17 - Medical History PMH: Anxiety, Asthma - [facility] Procedures DETOXIFICATION SERVICES FOR SUBSTANCE ABUSE TREATMENT (09/02/16) EXTRACTION OF POC, LOW CERVICAL, OPEN APPROACH (03/02/18) MEDS MGMT FOR SUBSTANCE ABUSE TREATMENT, METHADONE MAINT (03/02/18) RELEASE PERITONEUM, OPEN APPROACH (03/02/18) Family History: States: Unknown Family Hx - Social History Hx Tobacco Use: Yes Hx Alcohol Use: No Hx Substance Use: No - Immunization History Hx Tetanus Toxoid Vaccination: No Hx Influenza Vaccination: No Review Of Systems Constitutional: Negative for: Fever Gastrointestinal: Negative for: Nausea, Vomiting, Abdominal Pain Genitourinary: Negative for: Dysuria, Hematuria Skin: Positive for: Other (healing wound) Physical Exam - Physical Exam Appears: Non-toxic Skin: Warm, Dry, Other (Healing stapled wound to lower abdomen, mild tenderness , mild erythema, no drainage or swelling.) Head: Atraumatic, Normacephalic Eye(s): bilateral: Normal Inspection Oral Mucosa: Moist Chest: Symmetrical, No Tenderness Cardiovascular: Rhythm Regular Respiratory: Normal Breath Sounds, No Rales, No Rhonchi, No Wheezing Gastrointestinal/Abdominal: Soft, No Tenderness, No Distention Neurological/Psych: Oriented x3, Normal Speech ED Course And Treatment O2 Sat by Pulse Oximetry: 100 (Room air) Pulse Ox Interpretation: Normal Medical Decision Making Medical Decision Making: Old records reviewed, the patient was seen on 03/02/18 and had given and then was discharged home. The patient was asked if she follow up with OBGYN and states she has not followed up post . Multiple brianna taken out from edges however center brianna were kept as wound was not completely healed. Patient advised to follow up at OBGYN clinic in 1-2 days for further post evaluation. Disposition - Disposition Referrals: [facility] at [facility] [Outside] Disposition: HOME/ ROUTINE Disposition Time: 19:27 Condition: GOOD Additional Instructions: Wash the area with soap and water. Appl bacitracin. Follow up with the medical doctor within 1-2 days without fail. Return if worsened. 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 - Scribe Statement The provider has reviewed the documentation as recorded by the Scribe Raffy Barillas All medical record entries made by the Scribe were at my direction and personally dictated by me. I have reviewed the chart and agree that the record accurately reflects my personal performance of the history, physical exam, medical decision making, and the department course for this patient. I have also personally directed, reviewed, and agree with the discharge instructions and disposition.
== END 2018-03-11 19:48 | disposition home or self-care (01) ==
LOC: C.ER 18:21
DX: Z48.02 Encounter for removal of sutures (principal)

== ENCOUNTER 2018-03-15 16:48 | Emergency (ER) | payer MEDICAID, OTHER ==
[2018-03-15 16:48] VITALS: BMI 31.1
[2018-03-15 16:54] VITALS: BP 113/74; PULSE 96; RESP 18; TEMP 98.5; O2SAT 98
--- NOTE | 2018-03-15 16:57 | C.PDOC ---
History Of Present Illness 28 y/o female presents to ED for staple removal from site done on 03/02. Patient denies fever, drainage, chills, active bleeding or any other complaints at this time. Time Seen by Provider: 03/15/18 16:54 Chief Complaint (Nursing): Abnormal Skin Integrity History Per: Patient History/Exam Limitations: no limitations Onset/Duration Of Symptoms: Days Current Symptoms Are (Timing): Still Present Past Medical History Reviewed: Historical Data, Nursing Documentation, Vital Signs Vital Signs: Last Vital Signs Temp 98.5 F 03/15/18 16:52 Pulse 96 H 03/15/18 16:52 Resp 18 03/15/18 16:52 BP 113/74 03/15/18 16:52 Pulse Ox 98 03/15/18 17:14 - Medical History PMH: Anxiety, Asthma Surgical History: No Surg Hx - [facility] Procedures DETOXIFICATION SERVICES FOR SUBSTANCE ABUSE TREATMENT (09/02/16) EXTRACTION OF POC, LOW CERVICAL, OPEN APPROACH (03/02/18) MEDS MGMT FOR SUBSTANCE ABUSE TREATMENT, METHADONE MAINT (03/02/18) RELEASE PERITONEUM, OPEN APPROACH (03/02/18) Family History: States: No Known Family Hx - Social History Hx Tobacco Use: Yes Hx Alcohol Use: No Hx Substance Use: No - Immunization History Hx Tetanus Toxoid Vaccination: No Hx Influenza Vaccination: No Review Of Systems Constitutional: Negative for: Fever, Chills Gastrointestinal: Negative for: Nausea, Vomiting Skin: Negative for: Rash Physical Exam - Physical Exam Appears: Non-toxic, No Acute Distress Skin: Warm, Dry, No Rash Head: Atraumatic, Normacephalic Eye(s): bilateral: Normal Inspection Oral Mucosa: Moist Cardiovascular: Rhythm Regular Respiratory: Normal Breath Sounds, No Rales, No Rhonchi, No Wheezing Gastrointestinal/Abdominal: Soft, No Tenderness, No Guarding, No Rebound, Other (blu clear and intact to suprapubic region) Neurological/Psych: Oriented x3, Normal Speech ED Course And Treatment O2 Sat by Pulse Oximetry: 98 (RA) Pulse Ox Interpretation: Normal Medical Decision Making Medical Decision Makin Spoke with Dr Cooper who instructed me to remove blu and have patient follow up in the clinic. 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 - Scribe Statement The provider has reviewed the documentation as recorded by the Erasmoibobey Chiu All medical record entries made by the Candelaria were at my direction and personally dictated by me. I have reviewed the chart and agree that the record accurately reflects my personal performance of the history, physical exam, medical decision making, and the department course for this patient. I have also personally directed, reviewed, and agree with the discharge instructions and disposition.
== END 2018-03-15 17:20 | disposition home or self-care (01) ==
LOC: C.ER 16:48
DX: Z48.02 Encounter for removal of sutures (principal)

== ENCOUNTER 2018-03-27 21:32 | Emergency (ER) | payer MEDICAID ==
[2018-03-27 21:32] VITALS: BMI 31.1
[2018-03-27 21:39] VITALS: BP 120/82; PULSE 104; RESP 20; TEMP 98.5; O2SAT 97
--- NOTE | 2018-03-27 21:42 | C.PDOC ---
History Of Present Illness 28 y/o female presents to ED with c/o pain and swelling to posterior neck radiating to bilateral shoulders for 2 days. Patient denies trauma, headache, dizziness, neck stiffness, fever or any other complaints at this time. Time Seen by Provider: 03/27/18 21:41 Chief Complaint (Nursing): Back Pain History Per: Patient History/Exam Limitations: no limitations Onset/Duration Of Symptoms: Days Current Symptoms Are (Timing): Still Present Quality Of Discomfort: "Pain" Past Medical History Reviewed: Historical Data, Nursing Documentation, Vital Signs Vital Signs: Last Vital Signs Temp 98.5 F 03/27/18 21:37 Pulse 104 H 03/27/18 21:37 Resp 20 03/27/18 21:37 BP 120/82 03/27/18 21:37 Pulse Ox 97 03/27/18 21:53 - Medical History PMH: Anxiety, Asthma Surgical History: No Surg Hx - [facility] Procedures DETOXIFICATION SERVICES FOR SUBSTANCE ABUSE TREATMENT (09/02/16) EXTRACTION OF POC, LOW CERVICAL, OPEN APPROACH (03/02/18) MEDS MGMT FOR SUBSTANCE ABUSE TREATMENT, METHADONE MAINT (03/02/18) RELEASE PERITONEUM, OPEN APPROACH (03/02/18) Family History: States: No Known Family Hx - Social History Hx Tobacco Use: Yes Hx Alcohol Use: No Hx Substance Use: No - Immunization History Hx Tetanus Toxoid Vaccination: No Hx Influenza Vaccination: No Review Of Systems Constitutional: Negative for: Fever, Chills Musculoskeletal: Positive for: Neck Pain, Shoulder Pain. Negative for: Back Pain Skin: Negative for: Rash Neurological: Negative for: Weakness, Numbness, Headache, Dizziness Physical Exam - Physical Exam Appears: Non-toxic, No Acute Distress Skin: Warm, Dry, No Rash Head: Atraumatic, Normacephalic Eye(s): bilateral: Normal Inspection Oral Mucosa: Moist Neck: Normal ROM, No Midline Cervical Tenderness, Paracervical Tenderness ( bilaterally), No Step Off Deformity, Supple, Other (no fluctuance or erythema. No palpable mass, muscle spam at lower neck - midline) Lymphatic: No Adenopathy Chest: Symmetrical Back: No CVA Tenderness, No Paraspinal Tenderness Extremity: Normal ROM, Capillary Refill (<2 seconds), No Deformity Neurological/Psych: Oriented x3, Normal Speech, Normal Motor, Normal Sensation ED Course And Treatment O2 Sat by Pulse Oximetry: 97 (RA) Pulse Ox Interpretation: Normal Progress Note: Flexiril and Naproxen administered. Patient discharged with prescription and instructed to follow up with PMD in 1-2 days. Disposition Counseled Patient/Family Regarding: Diagnosis, Need For Followup, Rx Given - Disposition Referrals: [facility] [Outside] Disposition: HOME/ ROUTINE Disposition Time: 21:42 Condition: STABLE Additional Instructions: Please follow up with pMD Take medications as directed Apply warm compress to area Return to ER if worse Prescriptions: Cyclobenzaprine [Cyclobenzaprine HCl] 10 mg PO HS #10 tab Naproxen [Naprosyn] 1 tab PO BID PRN #20 tab PRN Reason: Pain Instructions: Neck Sprain (DC) Forms: [employer] (Occitan) - Clinical Impression Clinical Impression: Neck muscle spasm - 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 - Scribe Statement The provider has reviewed the documentation as recorded by the Erasmoibobey Chiu All medical record entries made by the Candelaria were at my direction and personally dictated by me. I have reviewed the chart and agree that the record accurately reflects my personal performance of the history, physical exam, medical decision making, and the department course for this patient. I have also personally directed, reviewed, and agree with the discharge instructions and disposition.
[2018-03-27] MEDS ORDERED: Naproxen 550 mg Tab PO STA (21:49)
[2018-03-27] MEDS ORDERED: Naproxen 550 mg Tab PO ONE (21:53)
== END 2018-03-27 22:13 | disposition home or self-care (01) ==
LOC: C.ER 21:32
DX: M62.838 Other muscle spasm (principal)

== ENCOUNTER → 2018-04-03 10:37 | Emergency (ER) | payer MEDICAID ==
[2018-04-03 10:38] VITALS: BMI 31.1
== END | disposition left against medical advice (07) ==
LOC: C.ER 10:37
DX: Z02.89 Encounter for other administrative examinations (principal); M54.9 Dorsalgia, unspecified

== ENCOUNTER 2018-04-06 21:31 | Inpatient (IN) | payer MEDICAID ==
[2018-04-06 21:31] VITALS: BMI 31.1
--- NOTE | 2018-04-06 22:13 | C.PDOC ---
History Of Present Illness 28 y/o female, one month post after , presents to ed for detox from heroin. pt reports she uses 16 bags per day for last 3 years. also occasionally uses cocaine and take xanax for her anxiety (last used about 4 days ago). pt sts last use of heroin was 6 hours ago and c/o withdrawal symptoms of myalgias, bone pain, nausea and vomiting. Time Seen by Provider: 04/06/18 22:01 Chief Complaint (Nursing): Substance Abuse History Per: Patient History/Exam Limitations: no limitations Onset/Duration Of Symptoms: Hrs (6) Current Symptoms Are (Timing): Worse Suicide/Self Injury Attempted (Context): None Modifying Factor(s): Narcotics Severity: Moderate Past Medical History Reviewed: Historical Data, Nursing Documentation, Vital Signs Vital Signs: Last Vital Signs Temp 98.3 F 04/07/18 00:18 Pulse 98 H 04/07/18 00:18 Resp 18 04/07/18 00:18 BP 117/76 04/07/18 00:18 Pulse Ox 98 04/07/18 00:18 - Medical History PMH: Anxiety, Asthma Denies: Depression, Diabetes, Hepatitis, HIV, HTN, Chronic Kidney Disease, Seizures, Sexually Transmitted Disease Surgical History: - [facility] Procedures DETOXIFICATION SERVICES FOR SUBSTANCE ABUSE TREATMENT (09/02/16) EXTRACTION OF POC, LOW CERVICAL, OPEN APPROACH (03/02/18) MEDS MGMT FOR SUBSTANCE ABUSE TREATMENT, METHADONE MAINT (03/02/18) RELEASE PERITONEUM, OPEN APPROACH (03/02/18) Family History: States: Unknown Family Hx - Social History Hx Tobacco Use: Yes Hx Alcohol Use: No Hx Substance Use: Yes - Immunization History Hx Tetanus Toxoid Vaccination: No Hx Influenza Vaccination: No Review Of Systems Constitutional: Positive for: Other (myalgias). Negative for: Fever, Chills Cardiovascular: Negative for: Chest Pain Respiratory: Negative for: Cough, Shortness of Breath Gastrointestinal: Positive for: Nausea, Vomiting Skin: Negative for: Rash Neurological: Negative for: Weakness, Numbness Physical Exam - Physical Exam Appears: Non-toxic, Other (uncomfortable appearing) Head: Atraumatic, Normacephalic Eye(s): bilateral: Normal Inspection Neck: Supple Cardiovascular: Rhythm Regular, No Murmur Respiratory: No Decreased Breath Sounds, No Wheezing Gastrointestinal/Abdominal: Bowel Sounds, Soft, No Tenderness, Other (well healed scar, non tender) Neurological/Psych: Oriented x3, Normal Speech, Normal Cognition ED Course And Treatment - Laboratory Results Result Diagrams: 04/06/18 22:14 04/06/18 22:14 O2 Sat by Pulse Oximetry: 98 Medical Decision Making Medical Decision Making: pt for detox from heroin. labs and urine ordered; crisis to see patient. pt has been accepted to detox, Disposition Discussed With : Davon Keyes Doctor Will See Patient In The: Hospital - Disposition Disposition: HOSPITALIZED Disposition Time: 23:25 Condition: GOOD - Clinical Impression Clinical Impression: Opioid use disorder, severe, dependence
[2018-04-06 22:27] LABS: BASO # 0.1 K/uL (0.0-0.2); BASO % 0.8 % (0.0-2.0); EOS # 0.2 K/uL (0.0-0.7); HEMOGLOBIN 12.4 g/dL (11.0-16.0); LYMPH # 1.7 K/uL (1.0-4.3); LYMPH % 14.8 % (20.0-40.0); MEAN CELL VOLUME 80.9 fL (81.0-99.0); MEAN CORPUSCULAR HEMOGLOBIN 26.2 pg (27.0-31.0); MEAN CORPUSCULAR HGB CONC 32.4 g/dL (33.0-37.0); MEAN PLATELET VOLUME 8.8 fL (7.2-11.7); MONO # 0.8 K/uL (0.0-0.8); MONO % 6.9 % (0.0-10.0); NEUT # 8.7 K/uL (1.8-7.0); NEUT % 75.5 % (50.0-75.0); NRBC % 0.1 % (0.0-2.0); RBC 4.76 Mil/uL (3.80-5.20); RED CELL DISTRIBUTION WIDTH 13.5 % (11.5-14.5); WHITE BLOOD COUNT 11.6 K/uL (4.8-10.8)
[2018-04-06 22:40] LABS: ALB/GLOB RATIO 1.2 (1.0-2.1); ALBUMIN 4.2 g/dL (3.5-5.0); ALT/SGPT 25 U/L (9-52); AST/SGOT 24 U/L (14-36); BLOOD UREA NITROGEN 10 mg/dL (7-17); CALCIUM 9.2 mg/dl (8.6-10.4); GFR AFRICAN-AMERICAN > 60; GFR NON-AFRICAN AMERICAN > 60
[2018-04-06 22:52] LABS: SQUAMOUS EPITHIAL 8 /hpf (0-5); URINE BILIRUBIN NEGATIVE (NEGATIVE); URINE BLOOD NEGATIVE (NEGATIVE); URINE CLARITY Hazy (Clear); URINE COLOR Amber (YELLOW); URINE GLUCOSE (UA) NORMAL (Normal); URINE LEUKOCYTE ESTERASE TRACE Leu/uL (Negative); URINE PROTEIN NEGATIVE (NEGATIVE)
[2018-04-06 22:54] LABS: HCG,QUALITATIVE URINE NEGATIVE (NEGATIVE)
[2018-04-06 23:04] LABS: BARBITURATES, UR NEGATIVE (NEGATIVE); BENZODIAZEPINES, UR NEGATIVE (NEGATIVE); PHENCYCLIDINE, UR NEGATIVE (NEGATIVE)
[2018-04-06 23:05] LABS: OPIATES, UR POSITIVE (NEGATIVE)
--- NOTE | 2018-04-07 01:33 | PCM.BM ---
<Leticia Castrejon - Last Filed: 04/07/18 01:32> Treatment Plan Problems - Problems identified on initial assessmt Opiate Dependence Date Initiated: 04/07/18 Time Initiated: 00:30 Assessment reference: NA Status: Active Treatment assets and liabiliti Patient Assests: ADL independent Patient Liabilities: substance abuse - Milieu Protocol Maintain good personal hygiene: daily Encourage regular showers, daily Remind patient to perform daily oral care, daily Assist patient to perform ADL's Maintain personal safety: every shift Educate patient to report safety concerns to staff, every shift Monitor environment for contraband/sharps Medication safety: Monitor for expected outcome, potential side effects: every shift, Assess barriers to learning: every shift, Assess readiness for medication education: every shift <Davon Keyes - Last Filed: 04/10/18 14:09> - Diagnosis (1) Opioid use disorder, severe, dependence Status: Acute Interventions: 04/07 * Assess 7x/week regarding severity of withdrawal * Educate regarding risks, benefits, side effects and alternatives of medications * Use Motivational Interviewing for abstinence * Use CBT for relapse prevention * Medication management for withdrawal symptoms * Encourage medication assisted treatment * 14:09
--- NOTE | 2018-04-07 09:58 | PCM.PSYCH ---
Initial Psychiatric Evaluation - Initial Psychiatric Evaluation Type of Admission: Voluntary Legal Status: Capacity Chief Complaint (in patient's own words): "I need detox" History of Present Illness and Precipitating Events: The patient is seen, chart reviewed, and case discussed. She is known from a previous consult right after she gave in February 2018. Patient is a 28 female, single with three children age 1 month, 12, and 13. She lives with her mother. Pt is unemployed. 1 m/o daughter is taken by [facility] and now lives with pt's cousin. The other 2 are with their paternal GM. She is here for heroin detox, uses about 16 bags IV, says she started using 4 years ago. Last use was at 8pm yesterday. Also admits to snorting cocaine "every other weekend." Pt denies marijuana use but UDS is positive, drinks alcohol, and smokes 1 pack of cigarettes daily. Uses Xanax but claims she has not used it for a while. Pt has been to detox once before, never to rehab. Plan is to go into rehab. Psych hx: She admits to being depressed and having anxiety. She has not attempted suicide. Past medical hx: denies Family psych hx: denies Current Medications: Active Medications Generic Name Dose Route Start Last Admin Trade Name Freq PRN Reason Stop Dose Admin Clonidine HCl 0.1 mg 04/07/18 00:42 Catapres PO Q6 PRN Opiate Withdrawal symptoms Hydroxyzine HCl 25 mg 04/07/18 00:43 Atarax PO Q6 PRN Anxiety Trazodone HCl 50 mg 04/07/18 00:41 Desyrel PO HS PRN Insomnia Past Psychiatric History - Past Psychiatric History Previous Treatment History: Intensive Outpatient Pertinent Medical Hx (Current Medical&Sleep Prob, Allergies): Allergies Allergy/AdvReac Type Severity Reaction Status Date / Time No Known Allergies Allergy Verified 03/11/18 18:40 Cyclobenzaprine [Cyclobenzaprine HCl] 10 mg PO HS #10 tab 03/27/18 Naproxen [Naprosyn] 1 tab PO BID PRN #20 tab 03/27/18 Review of Systems - Neurological Neurological: Tremor - Psychiatric Psychiatric: Abnormal Sleep Pattern, Anhedonia, Anxiety, Behavioral Changes, Depression, Difficulty Concentrating, Irritability. absent: Hallucinations, Homicidal Ideation, Paranoia, Suicidal Ideation Mental Status Examination - Personal Presentation Personal Presentation: Looks older than stated age - Affect Affect: Constricted - Motor Activity Motor Activity: Calm - Reliability in Providing Information Reliability in Providing Information: Good - Speech Speech: Organized - Mood Mood: Depressed, Anxious - Formal Thought Process Formal Thought Process: No Impairment - Cognitive Functions Orientation: Person, Place, Situation, Time Sensorium: Alert Attention/Concentration: Easily distracted Abstract Thinking: Plummer Estimate of Intelligence: Average Judgement: Intact, as evidence by: Insight regarding need for hospitalization Memory: Recent intact, as evidence by: Ability to recall events of the day, Remote intact, as evidenced by: Abilit to recall sig. life events - Risk Risk: Withdrawal, Diminished functioning - Strength & Assets Inventory Strength & Assets Inventory: Cooperative - Limitations Limitations: Other DSM 5 DX - DSM 5 DSM 5 Diagnosis: Opioid withdrawal Opioid use disorder, severe Cocaine use disorder, severe Depressive disorder, unspecified Substance-induced depression DORYS - Recommended/Plan of Treatment Treatment Recommendations and Plan of Treatment: Taper with Methadone Gabapentin for augmentation if needed As needed medications All risks, benefits and alternatives of the meds discussed, and the pt agreed and understood. Attend groups and activities Supportive therapy and psychoeducation [place] for abstinence CBT for relapse prevention Encourage MAT Refer to rehab or IOP, and self-help groups Smoking cessation with [place] Nicotine patch if needed [place] for encouraging pt to go into intermediate project manager rehab to prevent relapse Encouraging her children's involvement in care post-detox for support 34min Projected ELOS: 5 days Prognosis: good with rehab and MAT - Smoking Cessation Smoking Cessation Initiated: Yes
[2018-04-07] MEDS ORDERED: Aluminum Hydroxide/Magnesium Hydroxide Susp (30 mL) PO PRN (12:17)
--- NOTE | 2018-04-08 11:39 | PCM.PYCHPN ---
Psychiatric Progress Note - Psychiatric Progress Note Patient seen today, length of contact: 16 min Patient Chief Complaint: I am still withdrawing.' Problems Identified/Issues Discussed: Patient seen and evaluated, chart reviewed and discussed with the nurse. Pt reports irritability but denies any feelings of hopelessness and helplessness. She remained isolated and withdrawn, and confined to her room. She still reports withdrawal symptoms. She denies any AVH or any paranoia. Patient is compliant with medications and denies any side effects. Symptoms are improving but pt needs more time to stabilize. Support and psychoeducation given. Medication Change: Yes Medical Record Reviewed: Yes Mental Status Examination - Cognitive Function Orientation: Person, Place, Situation, Time Memory: Intact Attention: WNL Concentration: Poor Association: WNL Fund of Knowledge: Poor - Mood Mood: Depressed, Anxious - Affect Affect: Constricted - Speech Speech: Soft - Formal Thought Process Formal Thought Process: No Impairment - Suicidal Ideation Suicidal Ideation: No - Homicidal Ideation Homicidal Ideation: No Goal/Treatment Plan - Goal/Treatment Plan Need for Continued Stay: Severe depression anxiety, Severe functional impairment Progress Toward Problem(s) and Goals/Treatment Plan: Opioid withdrawal Opioid use disorder, severe Cocaine use disorder, severe Depressive disorder, unspecified Substance-induced depression DORYS Taper with Methadone Gabapentin for augmentation if needed As needed medications All risks, benefits and alternatives of the meds discussed, and the pt agreed and understood. Attend groups and activities Supportive therapy and psychoeducation [place] for abstinence CBT for relapse prevention Encourage MAT Refer to rehab or IOP, and self-help groups Smoking cessation with [place] Nicotine patch if needed [place] for encouraging pt to go into intermediate card tender rehab to prevent relapse Encouraging her children's involvement in care post-detox for support - Smoking Cessation Smoking Cessation Initiated: No
--- NOTE | 2018-04-09 15:02 | RAD ---
Date of service: 04/09/2018 HISTORY: rehab placement COMPARISON: Chest radiographs 03/05/2018. TECHNIQUE: Chest PA and lateral FINDINGS: LUNGS: No active pulmonary disease. PLEURA: No significant pleural effusion identified. No pneumothorax apparent. CARDIOVASCULAR: Normal. OSSEOUS STRUCTURES: No significant abnormalities. VISUALIZED UPPER ABDOMEN: Normal. OTHER FINDINGS: None. IMPRESSION: No interval acute cardiopulmonary disease appreciated.
--- NOTE | 2018-04-09 16:45 | PCM.PYCHPN ---
Psychiatric Progress Note - Psychiatric Progress Note Patient seen today, length of contact: 16 min Patient Chief Complaint: I am missing my daughter.' Problems Identified/Issues Discussed: Patient seen and evaluated, chart reviewed and discussed with the nurse. Pt reports sad mood as she is missing her 1 month old daughter. She still reports withdrawal symptoms including nausea, cramps and sweating. She remained isolated and withdrawn, and confined to her room. She denies any feelings of hopelessness and helplessness. She denies any AVH or any paranoia. Patient is compliant with medications and denies any side effects. Symptoms are improving but pt needs more time to stabilize. Support and psychoeducation given. Medication Change: Yes Medical Record Reviewed: Yes Mental Status Examination - Cognitive Function Orientation: Person, Place, Situation, Time Memory: Intact Attention: WNL Concentration: Poor Association: WNL Fund of Knowledge: Poor - Mood Mood: Depressed, Anxious - Affect Affect: Constricted - Speech Speech: Soft - Formal Thought Process Formal Thought Process: No Impairment - Suicidal Ideation Suicidal Ideation: No - Homicidal Ideation Homicidal Ideation: No Goal/Treatment Plan - Goal/Treatment Plan Need for Continued Stay: Severe depression anxiety, Severe functional impairment Progress Toward Problem(s) and Goals/Treatment Plan: Opioid withdrawal Opioid use disorder, severe Cocaine use disorder, severe Depressive disorder, unspecified Substance-induced depression DORYS Taper with Methadone Gabapentin for augmentation if needed As needed medications All risks, benefits and alternatives of the meds discussed, and the pt agreed and understood. 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
[2018-04-10 03:45] VITALS: O2SAT 99
[2018-04-10 06:23] VITALS: RESP 18
[2018-04-10 10:26] VITALS: BP 106/67; PULSE 90; TEMP 98.3
--- NOTE | 2018-04-10 11:38 | PCM.PYCHPN ---
Psychiatric Progress Note - Psychiatric Progress Note Patient seen today, length of contact: 16 min Medication Change: Yes Medical Record Reviewed: Yes Mental Status Examination - Cognitive Function Orientation: Person, Place, Situation, Time Memory: Intact Attention: WNL Concentration: Poor Association: WNL Fund of Knowledge: Poor - Mood Mood: Depressed, Anxious - Affect Affect: Constricted - Speech Speech: Soft - Formal Thought Process Formal Thought Process: No Impairment - Suicidal Ideation Suicidal Ideation: No - Homicidal Ideation Homicidal Ideation: No Goal/Treatment Plan - Goal/Treatment Plan Need for Continued Stay: Severe depression anxiety, Severe functional impairment
--- NOTE | 2018-04-10 12:32 | PCM.PYCHDC ---
Mental Status Examination - Mental Status Examination Orientation: Person, Place, Situation, Time Memory: Intact Mood: Anxious Affect: Constricted Speech: Appropriate Attention: Poor Concentration: Poor Association: WNL Fund of Knowledge: Poor Formal Thought Process: No Impairment Suicidal Ideation: No Current Homicidal Ideation?: No Discharge Summary - Discharge Note Reason for Hospitalization: Opioid detox Consultations:: List each consultation separately and include: 1. Reason for request. 2. Findings. 3. Follow-up Summary of Hospital Course include:: 1. Description of specific treatment plan utilized for patients during their course of treatmen. 2. Summarize the time- course for resolution of acute symptoms and/or regressed behaviors. 3. Describe issues identified and worked on during hospitalization. 4. Describe medication utilized. 5. Describe medical problems identified and treated. 6. Reassessment of suicide risk Summary of Hospital Course: The patient is seen three times, chart reviewed, and case discussed. On admission: She is known from a previous consult right after she gave in February 2018. Patient is a 28 female, single with three children age 1 month, 12, and 13. She lives with her mother. Pt is unemployed. 1 m/o daughter is taken by [facility] and now lives with pt's cousin. The other 2 are with their paternal GM. She is here for heroin detox, uses about 16 bags IV, says she started using 4 years ago. Last use was at 8pm yesterday. Also admits to snorting cocaine "every other weekend." Pt denies marijuana use but UDS is positive, drinks alcohol, and smokes 1 pack of cigarettes daily. Uses Xanax but claims she has not used it for a while. Pt has been to detox once before, never to rehab. Plan is to go into rehab. Psych hx: She admits to being depressed and having anxiety. She has not attempted suicide. Past medical hx: denies Family psych hx: denies Hospital course: The pt was admitted and started on treatment with psychotherapy, support, psychoeducation and medications. CO and CBT used. The pt attended groups and activities, as well as milieu therapy. All the risks and benefits of medications are discussed and the patient understood and agreed. The pt improved with the treatments provided. She had one more day but she chose to leave early for no real reason. She was having some sxs but we would give extra dose. She also told one of our counselors she will use outside - warned against this repeatedly. All the risks of leaving a day early discussed, incl. relapse, OD and but she understood and yet still left After care discussed with the patient.- she now says she will go back to [facility] "tomorrow" after she gets her ID, which was a reason she was rejected by inpt rehabs. - Final Diagnosis (DSM 5) Condition upon Discharge: GOOD DSM 5: Opioid withdrawal Opioid use disorder, severe Cocaine use disorder, severe Depressive disorder, unspecified Substance-induced depression DORYS Disposition: HOME/ ROUTINE Follow-up Treatment Plan: Continue below medications after discharge. Follow after care plan as discussed. Use relapse prevention skills Return to ER or call 911 if suicidal, homicidal or symptoms relapse. Stay away from stress, alcohol and drugs. See primary doctor regularly and get labs. Prescriptions/Medication Reconciliation: Escitalopram [Lexapro] 10 mg PO DAILY #30 tab traZODone [Desyrel] 50 mg PO HS PRN #30 tab PRN Reason: Insomnia - Smoking Cessation Smoking Cessation Medication prescribed: No - Antipsychotic Medications Pt discharged on 2 or more routine antipsychotic medications: No
== END 2018-04-10 12:40 | disposition home or self-care (01) | DRG 745 ==
LOC: C.ER 21:31 → C.7D 23:16 → EEVIPCON 23:16
PROVIDERS: ADMIT Psychiatry & Neurology Psychiatry; ATTEND Psychiatry & Neurology Psychiatry
PROC: HZ2ZZZZ Detoxification Services for Substance Abuse Treatment (ICD-10-PCS; principal; 2018-04-06)
PROC: HZ52ZZZ Individual Psychotherapy for Substance Abuse Treatment, Cognitive-Behavioral (ICD-10-PCS; 2018-04-06)
PROC: HZ59ZZZ Individual Psychotherapy for Substance Abuse Treatment, Supportive (ICD-10-PCS; 2018-04-06)
PROC: HZ56ZZZ Individual Psychotherapy for Substance Abuse Treatment, Psychoeducation (ICD-10-PCS; 2018-04-06)
PROC: HZ42ZZZ Group Counseling for Substance Abuse Treatment, Cognitive-Behavioral (ICD-10-PCS; 2018-04-06)
PROC: HZ46ZZZ Group Counseling for Substance Abuse Treatment, Psychoeducation (ICD-10-PCS; 2018-04-06)
PROC: GZHZZZZ Group Psychotherapy (ICD-10-PCS; 2018-04-06)
PROC: GZ58ZZZ Individual Psychotherapy, Cognitive-Behavioral (ICD-10-PCS; 2018-04-06)
PROC: GZ56ZZZ Individual Psychotherapy, Supportive (ICD-10-PCS; 2018-04-06)
DX: F11.23 Opioid dependence with withdrawal (principal); F14.20 Cocaine dependence, uncomplicated; F12.90 Cannabis use, unspecified, uncomplicated; F17.210 Nicotine dependence, cigarettes, uncomplicated; F32.89 Other specified depressive episodes; F41.1 Generalized anxiety disorder; J45.909 Unspecified asthma, uncomplicated

== ENCOUNTER 2018-06-06 14:22 | Inpatient (IN) | payer MEDICAID ==
[2018-06-06 14:22] VITALS: BMI 31.1
--- NOTE | 2018-06-06 14:40 | C.PDOC ---
History Of Present Illness 28 y/o female presents to ED requesting detox from Heroin. Patient states the last time she used heroin was last night. Patient denies ETOH use, SI/HI, or any current physical complaints. Time Seen by Provider: 06/06/18 14:35 Chief Complaint (Nursing): Substance Abuse History Per: Patient History/Exam Limitations: no limitations Current Symptoms Are (Timing): Still Present Suicide/Self Injury Attempted (Context): None Modifying Factor(s): Alcohol, Narcotics Severity: Moderate Past Medical History Reviewed: Historical Data, Nursing Documentation, Vital Signs Vital Signs: Last Vital Signs Temp 97.8 F 06/06/18 14:26 Pulse 93 H 06/06/18 14:26 Resp 18 06/06/18 14:26 BP 99/62 L 06/06/18 14:26 Pulse Ox 99 06/06/18 14:26 - Medical History PMH: Anxiety, Asthma Surgical History: - [facility] Procedures DETOXIFICATION SERVICES FOR SUBSTANCE ABUSE TREATMENT (04/06/18) EXTRACTION OF POC, LOW CERVICAL, OPEN APPROACH (03/02/18) GROUP [employer] CLERK FOR SUBSTANCE ABUSE TREATMENT, PSYCHOEDUCATION (04/06/18) GROUP [employer] CONTR[employer] CLERK FOR SUBSTANCE ABUSE, COGNITIVE BEHAVIORAL (04/06/18) GROUP PSYCHOTHERAPY (04/06/18) INDIV PSYCHOTHERAPY FOR SUBSTANCE ABUSE TREATMENT, SUPPORT (04/06/18) INDIV PSYCHOTHERAPY FOR SUBSTANCE ABUSE, COGNITIV BEHAVIORAL (04/06/18) INDIV PSYCHOTHERAPY FOR SUBSTANCE ABUSE, PSYCHOEDUCATION (04/06/18) INDIVIDUAL PSYCHOTHERAPY, COGNITIVE-BEHAVIORAL (04/06/18) INDIVIDUAL PSYCHOTHERAPY, SUPPORTIVE (04/06/18) MEDS MGMT FOR SUBSTANCE ABUSE TREATMENT, METHADONE MAINT (03/02/18) RELEASE PERITONEUM, OPEN APPROACH (03/02/18) Family History: States: No Known Family Hx - Social History Hx Tobacco Use: Yes Hx Alcohol Use: No Hx Substance Use: Yes - Immunization History Hx Tetanus Toxoid Vaccination: No Hx Influenza Vaccination: No Review Of Systems Constitutional: Negative for: Fever, Chills Cardiovascular: Negative for: Chest Pain Respiratory: Negative for: Cough, Shortness of Breath Gastrointestinal: Negative for: Nausea, Vomiting, Diarrhea Psych: Positive for: Other (heroin abuse ). Negative for: Suicidal ideation Physical Exam - Physical Exam Appears: Well, Non-toxic, No Acute Distress Skin: Warm, Dry, No Rash Eye(s): bilateral: Normal Inspection Oral Mucosa: Moist Neck: Supple Cardiovascular: Rhythm Regular Respiratory: Normal Breath Sounds, No Rales, No Rhonchi, No Wheezing Gastrointestinal/Abdominal: Normal Exam, Bowel Sounds, Soft, No Tenderness Neurological/Psych: Oriented x3 ED Course And Treatment - Laboratory Results Result Diagrams: 06/06/18 15:06 06/06/18 15:06 O2 Sat by Pulse Oximetry: 99 (RA) Pulse Ox Interpretation: Normal Progress Note: Blood work, UA, UDS, UPreg ordered and reviewed. 4:30pm- Patient medically cleared. 4:45pm- Patient accepted by Dr. Del Real for admission. Disposition - Disposition Disposition: HOSPITALIZED Disposition Time: 16:45 Condition: STABLE - Clinical Impression Clinical Impression: Heroin dependence, Opiate use - Scribe Statement The provider has reviewed the documentation as recorded by the Scribe Nahum Chiu All medical record entries made by the Scribe were at my direction and personally dictated by me. I have reviewed the chart and agree that the record accurately reflects my personal performance of the history, physical exam, medical decision making, and the department course for this patient. I have also personally directed, reviewed, and agree with the discharge instructions and disposition. Decision To Admit - Pt Status Changed To: Hospital Disposition Of: Inpatient - Admit Certification Admit to Inpatient:: After my assessment, the patient will require hospitalization for at least two midnights. This is because of the severity of symptoms shown, intensity of services needed, and/or the medical risk in this patient being treated as an outpatient. - InPatient: Physician Admission Certification: I certify that this patient requires 2 or more midnights of care for the following reason:: see notes - . Bed Request Type: Detox Admitting Physician: Alexi Del Real Patient Diagnosis: Heroin dependence
[2018-06-06 15:09] LABS: BASO # 0.1 K/uL (0.0-0.2); BASO % 0.9 % (0.0-2.0); EOS # 0.4 K/uL (0.0-0.7); EOS % 5.9 % (0.0-4.0); HEMOGLOBIN 12.7 g/dL (11.0-16.0); LYMPH # 2.8 K/uL (1.0-4.3); LYMPH % 43.7 % (20.0-40.0); MEAN CORPUSCULAR HEMOGLOBIN 26.2 pg (27.0-31.0); MEAN CORPUSCULAR HGB CONC 33.1 g/dL (33.0-37.0); MEAN PLATELET VOLUME 8.3 fL (7.2-11.7); MONO # 0.7 K/uL (0.0-0.8); MONO % 10.6 % (0.0-10.0); NEUT # 2.5 K/uL (1.8-7.0); NEUT % 38.9 % (50.0-75.0); RBC 4.86 Mil/uL (3.80-5.20); RED CELL DISTRIBUTION WIDTH 14.2 % (11.5-14.5); WHITE BLOOD COUNT 6.4 K/uL (4.8-10.8)
[2018-06-06 15:13] LABS: HCG,QUALITATIVE URINE NEGATIVE (NEGATIVE)
[2018-06-06 15:20] LABS: SQUAMOUS EPITHIAL 3 /hpf (0-5); URINE BILIRUBIN NEGATIVE (NEGATIVE); URINE BLOOD NEGATIVE (NEGATIVE); URINE CLARITY Hazy (Clear); URINE COLOR Amber (YELLOW); URINE GLUCOSE (UA) NORMAL (Normal); URINE LEUKOCYTE ESTERASE NEG Leu/uL (Negative); URINE PROTEIN NEGATIVE (NEGATIVE)
[2018-06-06 15:23] LABS: ALB/GLOB RATIO 1.1 (1.0-2.1); ALBUMIN 3.9 g/dL (3.5-5.0); ALT/SGPT 41 U/L (9-52); AST/SGOT 25 U/L (14-36); BLOOD UREA NITROGEN 14 mg/dL (7-17); CALCIUM 8.9 mg/dl (8.6-10.4); GFR NON-AFRICAN AMERICAN > 60
[2018-06-06 15:35] LABS: BARBITURATES, UR NEGATIVE (NEGATIVE); BENZODIAZEPINES, UR NEGATIVE (NEGATIVE)
[2018-06-06 15:59] LABS: OPIATES, UR POSITIVE (NEGATIVE); PHENCYCLIDINE, UR POSITIVE (NEGATIVE)
--- NOTE | 2018-06-06 16:57 | PCM.BM ---
<Cordell Orona - Last Filed: 06/06/18 16:56> Treatment Plan Problems - Problems identified on initial assessmt potential for opiate abuse Date Initiated: 06/06/18 Time Initiated: 16:56 Status: Active Treatment assets and liabiliti Patient Assests: cooperative, ADL independent, cognitively intact Patient Liabilities: substance abuse - Milieu Protocol Maintain good personal hygiene: daily Encourage regular showers, daily Remind patient to perform daily oral care, daily Assist patient to perform ADL's Conduct patient checks and document Observation sheet: Q15 minutes Maintain personal safety: every shift Educate patient to report safety concerns to staff, every shift Monitor environment for contraband/sharps Medication safety: Monitor for expected outcome, potential side effects: every shift, Assess barriers to learning: every shift, Assess readiness for medication education: every shift <Davon Keyes - Last Filed: 06/07/18 22:25> - Diagnosis (1) Opioid use disorder, severe, dependence Status: Acute Interventions: 06/07/18 22:25 * Assess 7x/week regarding severity of withdrawal * Educate regarding risks, benefits, side effects and alternatives of medications * Use Motivational Interviewing for abstinence * Use CBT for relapse prevention * Medication management for withdrawal symptoms * Encourage medication assisted treatment * <Mary Lou Wu - Last Filed: 06/08/18 09:39> Family Contact Family involvement: Famliy/SO not involved - Goals for Treatment Patient goals for treatment: Complete detox and transition to a short-term rehab. Discharge/Continuing Care - Education Needs Education Needs: Family Health Practices/Safety (compliance regarding active [facility] case), Patient Medication, Patient Diagnosis/Disease Process, Patient Coping Skills, Patient Anger Management skills, Patient Placement options, Patient Community resources, Patient Health Practices/Safety - Discharge Discharge Criteria: No longer exhibiting s/s of withdrawal, Reduction of target symptoms Discharge to:: Substance Abuse Rehab - Treatment Team Participation Patient/Family/SO Statement: 06/08/18 09:38 "I guess I'll try [facility]." Discussed with Family/SO: No Was Patient/Family/SO present at Treatment Team Meeting: Yes
[2018-06-06] MEDS ORDERED: Aluminum Hydroxide/Magnesium Hydroxide Susp (30 mL) PO PRN (17:33)
--- NOTE | 2018-06-07 14:09 | PCM.PSYCH ---
Addendum entered and electronically signed by Davon Keyes MD 06/07/18 22:26: I attest that I have interviewed the pt and reviewed the chart and participated and agree with the following assessment and plan. Original Note: Initial Psychiatric Evaluation - Initial Psychiatric Evaluation Type of Admission: Voluntary Legal Status: Capacity Chief Complaint (in patient's own words): "I need detox." History of Present Illness and Precipitating Events: The patient is seen, chart reviewed and case discussed. She is known from previous admissions. Patient is a 28 year old female, single with three children age 2.5 month, 12, and 13. She lives with her mother. Pt is unemployed. [place] daughter is taken by [facility] and now lives with pt's cousin. The other 2 are with their paternal GM. She is here for heroin detox, uses about 16 bags IV, says she started using 4 years ago. Last use was at immediately prior to admission yesterday. Also admits to snorting cocaine "every other weekend." Patient smokes 1 ppd of cigarettes, drinks alcohol socially and denies other illicit drug use. When confronted with her UDS results, she still denies. Uses Xanax but claims she has not used it for a while. Pt has been to detox twice before, never to rehab. Plan is to go into rehab despite not arriving at [facility] after last discharge and relapsing same day. Psych hx: She admits to being depressed and having anxiety. She has not attempted suicide. Past medical hx: denies Family psych hx: denies ED: BAL <10, UDS + for opiates, cocaine, PCP Current Medications: Active Medications Generic Name Dose Route Start Last Admin Trade Name Freq PRN Reason Stop Dose Admin Al Hydrox/Mg Hydrox/Simethicone 30 ml 06/06/18 17:33 Maalox 30 Ml PO TID PRN Indigestion / Heartburn Clonidine HCl 0.1 mg 06/06/18 17:33 Catapres PO Q8 PRN COWS Score More or Equal to 5 Hydroxyzine HCl 25 mg 06/06/18 17:34 Atarax PO Q6 PRN Anxiety Loperamide HCl 2 mg 06/06/18 17:33 Imodium PO Q8 PRN Diarrhea Nicotine 1 patch 06/07/18 10:00 06/07/18 10:22 Nicoderm Cq TD Not Given DAILY RADHA Ondansetron HCl 4 mg 06/06/18 17:33 Zofran Tab PO Q8 PRN Nausea/Vomiting Trazodone HCl 100 mg 06/06/18 17:34 Desyrel PO HS PRN Sleep Past Psychiatric History - Past Psychiatric History Pertinent Medical Hx (Current Medical&Sleep Prob, Allergies): Allergies Allergy/AdvReac Type Severity Reaction Status Date / Time No Known Allergies Allergy Verified 06/06/18 14:29 Alprazolam [Xanax] 2 mg PO DAILY 06/06/18 Review of Systems - Psychiatric Psychiatric: Abnormal Sleep Pattern, Anhedonia, Anxiety, Behavioral Changes, Depression, Difficulty Concentrating, Hopelessness, Irritability. absent: Hallucinations, Homicidal Ideation, Paranoia, Suicidal Ideation Mental Status Examination - Personal Presentation Personal Presentation: Looks older than stated age - Affect Affect: Constricted - Motor Activity Motor Activity: Calm - Reliability in Providing Information Reliability in Providing Information: Good - Speech Speech: Organized - Mood Mood: Depressed, Anxious - Formal Thought Process Formal Thought Process: No Impairment - Cognitive Functions Orientation: Person, Place, Situation, Time Sensorium: Drowsy Attention/Concentration: Easily distracted Estimate of Intelligence: Average Judgement: Intact, as evidence by: Insight regarding need for hospitalization Memory: Recent intact, as evidence by: Ability to recall events of the day, Remote intact, as evidenced by: Abilit to recall sig. life events - Risk Risk: Withdrawal, Diminished functioning - Strength & Assets Inventory Strength & Assets Inventory: Family support DSM 5 DX - DSM 5 DSM 5 Diagnosis: Opioid use disorder - severe Opioid withdrawal Cocaine use disorder - severe Depressive disorder, unspecified Substance induced depression Generalized anxiety disorder - Recommended/Plan of Treatment Treatment Recommendations and Plan of Treatment: Taper with Methadone Gabapentin for augmentation if needed As needed medications All risks, benefits and alternatives of the meds discussed, and the pt agreed and understood. Attend groups and activities Supportive therapy and psychoeducation MO for abstinence CBT for relapse prevention Encourage MAT Refer to rehab or IOP, and self-help groups Smoking cessation with MO Nicotine patch daily MO for encouraging pt to go into [facility] rehab to prevent relapse Encouraging her children's involvement in care post-detox for support 34min Projected ELOS: 5 days - Smoking Cessation Smoking Cessation Initiated: Yes
--- NOTE | 2018-06-08 22:13 | PCM.PYCHPN ---
Psychiatric Progress Note - Psychiatric Progress Note Patient seen today, length of contact: 15 min Patient Chief Complaint: I am feeling little better.' Problems Identified/Issues Discussed: Patient seen and evaluated, chart reviewed and discussed with the nurse. Patient reports withdrawal symptoms including, cramps, nausea, anxiety and headaches. Patient reports some anxiety but denies any suicidal ideation or homicidal ideation. She denies any auditory or visual hallucinations. She is tolerating the withdrawal medications and denies any side effects. Supportive therapy and psychoeducation were given. Medication Change: Yes Medical Record Reviewed: Yes Mental Status Examination - Cognitive Function Orientation: Person, Place, Situation, Time Memory: Intact Attention: WNL Concentration: Poor Association: WNL Fund of Knowledge: Poor - Mood Mood: Depressed, Anxious - Affect Affect: Constricted - Speech Speech: Soft - Formal Thought Process Formal Thought Process: No Impairment - Suicidal Ideation Suicidal Ideation: No - Homicidal Ideation Homicidal Ideation: No Goal/Treatment Plan - Goal/Treatment Plan Need for Continued Stay: Severe depression anxiety, Severe functional impairment Progress Toward Problem(s) and Goals/Treatment Plan: Opioid use disorder - severe Opioid withdrawal Cocaine use disorder - severe Depressive disorder, unspecified Substance induced depression Generalized anxiety disorder Taper with Methadone Gabapentin for augmentation if needed As needed medications All risks, benefits and alternatives of the meds discussed, and the pt agreed and understood. Attend groups and activities Supportive therapy and psychoeducation VT for abstinence CBT for relapse prevention Encourage MAT Refer to rehab or IOP, and self-help groups Smoking cessation with VT Nicotine patch daily VT for encouraging pt to go into [employer] [facility] rehab to prevent relapse Encouraging her children's involvement in care post-detox for support - Smoking Cessation Smoking Cessation Initiated: No
--- NOTE | 2018-06-09 13:34 | PCM.PYCHPN ---
Psychiatric Progress Note - Psychiatric Progress Note Patient seen today, length of contact: 15 min Patient Chief Complaint: "I'm getting better" Problems Identified/Issues Discussed: The pt is seen, chart reviewed, case discussed with staff. The pt is compliant with medications and reports no side-effects. Symptoms are improving but needs more time to stabilize. After care discussed, support and psychoeducation given. Medication Change: Yes (detox changes daily) Medical Record Reviewed: Yes Mental Status Examination - Cognitive Function Orientation: Person, Place, Situation, Time Memory: Intact Attention: WNL Concentration: Poor Association: WNL Fund of Knowledge: Poor - Mood Mood: Depressed, Anxious - Affect Affect: Constricted - Speech Speech: Soft - Formal Thought Process Formal Thought Process: No Impairment - Suicidal Ideation Suicidal Ideation: No - Homicidal Ideation Homicidal Ideation: No Goal/Treatment Plan - Goal/Treatment Plan Need for Continued Stay: Severe depression anxiety, Discharge may exacerbated symptoms, Severe functional impairment Progress Toward Problem(s) and Goals/Treatment Plan: Continue medications Support and psychoeducation daily Attend groups and activities daily After care planning by counselors Rehab MAT
--- NOTE | 2018-06-10 11:00 | PCM.PYCHPN ---
Psychiatric Progress Note - Psychiatric Progress Note Patient seen today, length of contact: 15 min Patient Chief Complaint: I am feeling little better.' Problems Identified/Issues Discussed: Patient seen and evaluated, chart reviewed and discussed with the nurse. Patient reports some improvement in the withdrawal symptoms but still reports anxiety and headaches. She reports improvement in her sleep and appetite. She denies any suicidal ideation or homicidal ideation. She denies any auditory or visual hallucinations. She is tolerating the withdrawal medications and denies any side effects. Supportive therapy and psychoeducation were given. Medication Change: Yes (detox changes daily) Medical Record Reviewed: Yes Mental Status Examination - Cognitive Function Orientation: Person, Place, Situation, Time Memory: Intact Attention: WNL Concentration: Poor Association: WNL Fund of Knowledge: Poor - Mood Mood: Depressed, Anxious - Affect Affect: Constricted - Speech Speech: Soft - Formal Thought Process Formal Thought Process: No Impairment - Suicidal Ideation Suicidal Ideation: No - Homicidal Ideation Homicidal Ideation: No Goal/Treatment Plan - Goal/Treatment Plan Need for Continued Stay: Severe depression anxiety, Discharge may exacerbated symptoms, Severe functional impairment Progress Toward Problem(s) and Goals/Treatment Plan: Opioid use disorder - severe Opioid withdrawal Cocaine use disorder - severe Depressive disorder, unspecified Substance induced depression Generalized anxiety disorder Taper with Methadone Gabapentin for augmentation if needed As needed medications All risks, benefits and alternatives of the meds discussed, and the pt agreed and understood. Attend groups and activities Supportive therapy and psychoeducation MT for abstinence CBT for relapse prevention Encourage MAT Refer to rehab or IOP, and self-help groups Smoking cessation with MT Nicotine patch daily MT for encouraging pt to go into [facility] to prevent relapse Encouraging her children's involvement in care post-detox for support - Smoking Cessation Smoking Cessation Initiated: No
[2018-06-10 14:21] VITALS: O2SAT 98
[2018-06-10 15:54] VITALS: BP 105/71; PULSE 75; RESP 19; TEMP 98.2
--- NOTE | 2018-06-11 23:54 | PCM.PYCHDC ---
Mental Status Examination - Mental Status Examination Orientation: Person, Place, Situation, Time Memory: Intact Mood: Neutral Affect: Constricted Speech: Soft Attention: WNL Concentration: WNL Association: WNL Fund of Knowledge: WNL Formal Thought Process: No Impairment Description of patient's judgement and insight: partially impaired Psychotic Thoughts and Behaviors: denies any AVH Suicidal Ideation: No Current Homicidal Ideation?: No Discharge Summary - Discharge Note Reason for Hospitalization: The patient is seen, chart reviewed and case discussed. She is known from previous admissions. Patient is a 28 year old female, single with three children age 2.5 month, 12, and 13. She lives with her mother. Pt is unemployed. daughter is taken by [facility] and now lives with pt's cousin. The other 2 are with their paternal GM. She is here for heroin detox, uses about 16 bags IV, says she started using 4 years ago. Last use was at immediately prior to admission yesterday. Also admits to snorting cocaine "every other weekend." Patient smokes 1 ppd of cigarettes, drinks alcohol socially and denies other illicit drug use. When confronted with her UDS results, she still denies. Uses Xanax but claims she has not used it for a while. Pt has been to detox twice before, never to rehab. Plan is to go into rehab despite not arriving at [facility] after last discharge and relapsing same day. Psych hx: She admits to being depressed and having anxiety. She has not attempted suicide. Past medical hx: denies Family psych hx: denies ED: BAL <10, UDS + for opiates, cocaine, PCP Consultations:: List each consultation separately and include: 1. Reason for request. 2. Findings. 3. Follow-up Summary of Hospital Course include:: 1. Description of specific treatment plan utilized for patients during their course of treatmen. 2. Summarize the time- course for resolution of acute symptoms and/or regressed behaviors. 3. Describe issues identified and worked on during hospitalization. 4. Describe medication utilized. 5. Describe medical problems identified and treated. 6. Reassessment of suicide risk Summary of Hospital Course: Patient was improving, an as her staff she was feeling better, untill today. She reported that she is feeling better and she demanded to get signed out AMA. However, patient denied any feelings of hopelessness, helplessness, and worthlessness, denied any problem with the sleep or appetite, denied suicidal ideation or homicidal ideation. Pt denied any auditory or visual hallucinations. She denied any withdrawal symptoms. - Final Diagnosis (DSM 5) Condition upon Discharge: STABLE DSM 5: Opioid withdrawal Opioid use disorder severe Cocaine use disorder severe PCP use disorder severe Disposition: AGAINST MEDICAL ADVICE Follow-up Treatment Plan: Education: Pt was educated and counseled about the risks and benefits of taking and not taking medications. Pt was educated and counseled about the risks of drinking and abusing drugs. Pt was educated and counseled to go to the ER or call 911 if pt develop suicidal ideation or homicidal ideation, worsening of symptoms or severe side effects of the meds. - Smoking Cessation Smoking Cessation Medication prescribed: No - Antipsychotic Medications Pt discharged on 2 or more routine antipsychotic medications: No
== END 2018-06-10 16:51 | disposition left against medical advice (07) | DRG 770 ==
LOC: C.ER 14:22 → C.7D 16:45
DX: F11.23 Opioid dependence with withdrawal (principal); F14.20 Cocaine dependence, uncomplicated; F16.10 Hallucinogen abuse, uncomplicated; F11.24 Opioid dependence with opioid-induced mood disorder; F41.1 Generalized anxiety disorder; F17.210 Nicotine dependence, cigarettes, uncomplicated

== ENCOUNTER 2018-06-23 20:06 | Emergency (ER) | payer MEDICAID ==
[2018-06-23 20:06] VITALS: BMI 31.1
[2018-06-23 20:17] VITALS: BP 155/104; PULSE 61; TEMP 98.3; O2SAT 98
--- NOTE | 2018-06-23 20:47 | C.PDOC ---
History Of Present Illness 28 y/o F c PMHx anxiety, psychiatric illness p/w anxiety attack like symptoms. Patient states she was on bus when she started feeling like she was having an anxiety attack. She describes feeling hot, cold, body aches, restlessness, knees locking up. States similar to previous anxiety attacks but more severe. Denies cough, vomiting, dysuria. LMP 4 months ago. Gave 5 months ago. Time Seen by Provider: 06/23/18 20:20 Chief Complaint (Nursing): Anxiety Past Medical History Vital Signs: Last Vital Signs Temp 98.3 F 06/23/18 20:13 Pulse 61 06/23/18 20:13 Resp 20 06/23/18 20:13 BP 155/104 H 06/23/18 20:13 Pulse Ox 98 06/23/18 20:13 - Medical History PMH: Anxiety, Asthma, Depression, Seizures (last seizure 2003) Denies: Diabetes, Hepatitis, HIV, HTN, Chronic Kidney Disease, Sexually Transmitted Disease Surgical History: - [facility] Procedures DETOXIFICATION SERVICES FOR SUBSTANCE ABUSE TREATMENT (04/06/18) EXTRACTION OF POC, LOW CERVICAL, OPEN APPROACH (03/02/18) GROUP EDITORIAL ASSISTANT FOR SUBSTANCE ABUSE TREATMENT, PSYCHOEDUCATION (04/06/18) GROUP EDITORIAL ASSISTANT FOR SUBSTANCE ABUSE, COGNITIVE BEHAVIORAL (04/06/18) GROUP PSYCHOTHERAPY (04/06/18) INDIV PSYCHOTHERAPY FOR SUBSTANCE ABUSE TREATMENT, SUPPORT (04/06/18) INDIV PSYCHOTHERAPY FOR SUBSTANCE ABUSE, COGNITIV BEHAVIORAL (04/06/18) INDIV PSYCHOTHERAPY FOR SUBSTANCE ABUSE, PSYCHOEDUCATION (04/06/18) INDIVIDUAL PSYCHOTHERAPY, COGNITIVE-BEHAVIORAL (04/06/18) INDIVIDUAL PSYCHOTHERAPY, SUPPORTIVE (04/06/18) MEDS MGMT FOR SUBSTANCE ABUSE TREATMENT, METHADONE MAINT (03/02/18) RELEASE PERITONEUM, OPEN APPROACH (03/02/18) Family History: States: Unknown Family Hx - Social History Hx Tobacco Use: Yes Hx Alcohol Use: No Hx Substance Use: Yes (HEROIN) - Immunization History Hx Tetanus Toxoid Vaccination: No Hx Influenza Vaccination: No Hx Pneumococcal Vaccination: No Review Of Systems Except As Marked, All Systems Reviewed And Found Negative. Constitutional: Negative for: Fever Cardiovascular: Negative for: Chest Pain Physical Exam - Physical Exam Additional Physical Exam Comments: Constitutional: Appears restless. No acute distress. Head: Normocephalic. Atraumatic. Eyes: PERRL. ENT: Moist mucous membranes. Neck: Supple. Cardiovascular: Regular rate. Radial pulse 2+ bilaterally. Chest: No tenderness. Respiratory: Clear to auscultation bilaterally. GI: Soft. Nontender. Nondistended. Back: No CVA tenderness. Musculoskeletal: No tenderness or swelling of extremities. Skin: No rash. Neurologic: Alert, no focal deficit. ED Course And Treatment - Laboratory Results Result Diagrams: 06/23/18 20:58 06/23/18 20:58 O2 Sat by Pulse Oximetry: 98 Medical Decision Making Medical Decision Making: Patient eloped. Disposition - Disposition Disposition: ELOPEMENT - ER ONLY Disposition Time: 21:23 Condition: UNKNOWN Forms: [facility] (Divehi) - Clinical Impression Clinical Impression: Anxiety
[2018-06-23 21:04] LABS: BASO # 0.1 K/uL (0.0-0.2); BASO % 0.4 % (0.0-2.0); EOS # 0.3 K/uL (0.0-0.7); EOS % 2.4 % (0.0-4.0); HEMOGLOBIN 13.4 g/dL (11.0-16.0); LYMPH # 1.4 K/uL (1.0-4.3); LYMPH % 10.4 % (20.0-40.0); MEAN CELL VOLUME 78.4 fL (81.0-99.0); MEAN CORPUSCULAR HEMOGLOBIN 25.7 pg (27.0-31.0); MEAN CORPUSCULAR HGB CONC 32.8 g/dL (33.0-37.0); MONO # 0.2 K/uL (0.0-0.8); MONO % 1.5 % (0.0-10.0); NEUT # 11.5 K/uL (1.8-7.0); NEUT % 85.3 % (50.0-75.0); RBC 5.2 Mil/uL (3.80-5.20); RED CELL DISTRIBUTION WIDTH 14.5 % (11.5-14.5)
[2018-06-23 21:05] LABS: WHITE BLOOD COUNT 13.4 K/uL (4.8-10.8)
[2018-06-23 21:22] LABS: ALB/GLOB RATIO 1.2 (1.0-2.1); ALBUMIN 4.2 g/dL (3.5-5.0); ALT/SGPT 37 U/L (9-52); AST/SGOT 35 U/L (14-36); BLOOD UREA NITROGEN 12 mg/dL (7-17); GFR NON-AFRICAN AMERICAN > 60; LIPASE 109 U/L (23-300)
[2018-06-23 21:27] VITALS: RESP 16
== END 2018-06-23 21:25 | disposition left against medical advice (07) ==
LOC: C.ER 20:06
DX: F41.9 Anxiety disorder, unspecified (principal)
CPT/HCPCS: 80053; 83690; 85025; 96374; 99283; J2060

== ENCOUNTER 2018-11-24 14:49 | Inpatient (IN) | payer MEDICAID ==
[2018-11-24 15:06] VITALS: BMI 32.9
--- NOTE | 2018-11-24 15:35 | C.PDOC ---
History Of Present Illness 28 y/o female presents to the ED requesting heroin detox. Multiple detoxes in the past. Patient is accompanied by [facility] counselor, who visited yesterday and encouraged patient to come in for detox today. Patient is now complaining of withdrawal on arrival. She admits to using 26 bags of heroin per day, intravenously. Patient has 3 children, 2 of which are with her partner. 1 child is in [facility] care. Otherwise patient denies any fevers or chills. Time Seen by Provider: 11/24/18 15:19 Chief Complaint (Nursing): Substance Abuse History Per: Patient History/Exam Limitations: no limitations Onset/Duration Of Symptoms: Days Current Symptoms Are (Timing): Still Present Modifying Factor(s): Other (Heroin) Associated Symptoms: denies: Suicidal Thoughts, Suicidal Plan Involuntary Hold By: None Past Medical History Reviewed: Historical Data, Nursing Documentation, Vital Signs Vital Signs: Last Vital Signs Temp 98.0 F 11/24/18 15:06 Pulse 102 H 11/24/18 15:06 Resp 19 11/24/18 15:06 BP 119/79 11/24/18 15:06 Pulse Ox 95 11/24/18 15:06 - Medical History PMH: Anxiety, Asthma, Depression, Seizures (last seizure 2003) Denies: Diabetes, Hepatitis, HIV, HTN, Chronic Kidney Disease, Sexually Transmitted Disease Surgical History: - [facility] Procedures DETOXIFICATION SERVICES FOR SUBSTANCE ABUSE TREATMENT (04/06/18) EXTRACTION OF POC, LOW CERVICAL, OPEN APPROACH (03/02/18) GROUP BIOPHYSICS PROFESSOR FOR SUBSTANCE ABUSE TREATMENT, PSYCHOEDUCATION (04/06/18) GROUP BIOPHYSICS PROFESSOR FOR SUBSTANCE ABUSE, COGNITIVE BEHAVIORAL (04/06/18) GROUP PSYCHOTHERAPY (04/06/18) INDIV PSYCHOTHERAPY FOR SUBSTANCE ABUSE TREATMENT, SUPPORT (04/06/18) INDIV PSYCHOTHERAPY FOR SUBSTANCE ABUSE, COGNITIV BEHAVIORAL (04/06/18) INDIV PSYCHOTHERAPY FOR SUBSTANCE ABUSE, PSYCHOEDUCATION (04/06/18) INDIVIDUAL PSYCHOTHERAPY, COGNITIVE-BEHAVIORAL (04/06/18) INDIVIDUAL PSYCHOTHERAPY, SUPPORTIVE (04/06/18) MEDS MGMT FOR SUBSTANCE ABUSE TREATMENT, METHADONE MAINT (03/02/18) RELEASE PERITONEUM, OPEN APPROACH (03/02/18) Family History: States: Unknown Family Hx - Social History Hx Tobacco Use: Yes Hx Alcohol Use: No Hx Substance Use: Yes - Immunization History Hx Tetanus Toxoid Vaccination: No Hx Influenza Vaccination: No Hx Pneumococcal Vaccination: No Review Of Systems Except As Marked, All Systems Reviewed And Found Negative. Constitutional: Negative for: Fever, Chills, Malaise Eyes: Negative for: Vision Change Cardiovascular: Negative for: Chest Pain Respiratory: Negative for: Shortness of Breath Gastrointestinal: Negative for: Vomiting Skin: Negative for: Rash Neurological: Negative for: Weakness, Numbness Psych: Positive for: Withdrawal. Negative for: Suicidal ideation Physical Exam - Physical Exam Appears: Non-toxic, No Acute Distress Skin: Normal Color, Warm Head: Atraumatic, Normacephalic Eye(s): bilateral: Normal Inspection, PERRL, EOMI Oral Mucosa: Moist Neck: Normal ROM Chest: Symmetrical Cardiovascular: Rhythm Regular, No Murmur Respiratory: Normal Breath Sounds, No Accessory Muscle Use Gastrointestinal/Abdominal: Soft, No Tenderness, No Distention Extremity: Normal ROM, No Tenderness, No Deformity, Other (Track calhoun to B/L antecubital fossa and dorsum of left hand; Small area of erythema to right mid lateral forearm, no fluctuance, no tenderness) Pulses: Left Radial: Normal, Right Radial: Normal Neurological/Psych: Oriented x3 Gait: Steady ED Course And Treatment - Laboratory Results Result Diagrams: 11/24/18 15:54 11/24/18 15:54 Lab Interpretation: Abnormal (tox + opiates/thc) Urine POC: Negative O2 Sat by Pulse Oximetry: 95 (on RA) Pulse Ox Interpretation: Normal Reevaluation Time: 18:25 Reassessment Condition: Unchanged Medical Decision Making Medical Decision Making: continued heroin abuse seeking detox labs ordered for medical clearance pt pending crisis eval for detox availability Disposition Counseled Patient/Family Regarding: Studies Performed, Diagnosis - Disposition Disposition: HOSPITALIZED Disposition Time: 18:26 Condition: GOOD Forms: [facility] (Mongolian) - Clinical Impression Clinical Impression: Opiate use - Scribe Statement The provider has reviewed the documentation as recorded by the Erasmoibobey Herring Provider Attestation: All medical record entries made by the Erasmoibe were at my direction and per sonally dictated by me. I have reviewed the chart and agree that the record accurately reflects my personal performance of the history, physical exam, medical decision making, and the department course for this patient. I have also personally directed, reviewed, and agree with the discharge instructions and disposition.
[2018-11-24 15:58] LABS: BASO # 0.1 K/uL (0.0-0.2); BASO % 0.7 % (0.0-2.0); EOS # 0.6 K/uL (0.0-0.7); EOS % 5.2 % (0.0-4.0); LYMPH # 2.3 K/uL (1.0-4.3); LYMPH % 20.9 % (20.0-40.0); MEAN CORPUSCULAR HEMOGLOBIN 27.9 pg (27.0-31.0); MEAN CORPUSCULAR HGB CONC 34.1 g/dL (33.0-37.0); MEAN PLATELET VOLUME 8.6 fL (7.2-11.7); MONO # 0.9 K/uL (0.0-0.8); MONO % 7.9 % (0.0-10.0); NEUT # 7.2 K/uL (1.8-7.0); NEUT % 65.3 % (50.0-75.0); NRBC % 0.1 % (0.0-2.0); RBC 5.36 Mil/uL (3.80-5.20); RED CELL DISTRIBUTION WIDTH 13.6 % (11.5-14.5)
[2018-11-24 16:00] LABS: MEAN CELL VOLUME 81.8 fL (81.0-99.0)
[2018-11-24 16:15] LABS: HCG,QUALITATIVE URINE NEGATIVE (NEGATIVE)
[2018-11-24 16:18] LABS: BARBITURATES, UR NEGATIVE (NEGATIVE); BENZODIAZEPINES, UR POSITIVE (NEGATIVE); OPIATES, UR POSITIVE (NEGATIVE); PHENCYCLIDINE, UR NEGATIVE (NEGATIVE)
[2018-11-24 16:21] LABS: SQUAMOUS EPITHIAL 1 /hpf (0-5); URINE BACTERIA OCC (<OCC); URINE BILIRUBIN NEGATIVE (NEGATIVE); URINE BLOOD NEGATIVE (NEGATIVE); URINE CLARITY Hazy (Clear); URINE COLOR Amber (YELLOW); URINE GLUCOSE (UA) NORMAL (Normal); URINE LEUKOCYTE ESTERASE NEG Leu/uL (Negative); URINE PROTEIN NEGATIVE (NEGATIVE); URINE UROBILINOGEN NORMAL mg/dL (0.2-1.0)
[2018-11-24 16:25] LABS: ALB/GLOB RATIO 1.2 (1.0-2.1); ALBUMIN 4.8 g/dL (3.5-5.0); ALT/SGPT 23 U/L (9-52); AST/SGOT 41 U/L (14-36); BLOOD UREA NITROGEN 17 mg/dL (7-17); CALCIUM 9.7 mg/dl (8.6-10.4); GFR NON-AFRICAN AMERICAN > 60
[2018-11-24 16:34] LABS: ACETAMINOPHEN < 10.0 ug/mL (10.0-30.0); SALICYLATE < 1.0 mg/dL 1
--- NOTE | 2018-11-24 19:07 | PCM.BM ---
Treatment Plan Problems - Problems identified on initial assessmt denial Date Initiated: 11/24/18 Time Initiated: 19:05 Assessment reference: NA Status: Active chronic low self esteem Date Initiated: 11/24/18 Time Initiated: 19:06 Assessment reference: NA Status: Active altered family process Date Initiated: 11/24/18 Time Initiated: 19:07 Assessment reference: NA Status: Active Treatment assets and liabiliti Patient Assests: cooperative, ADL independent, cognitively intact Patient Liabilities: substance abuse - Milieu Protocol Maintain good personal hygiene: daily Encourage regular showers, daily Remind patient to perform daily oral care, daily Assist patient to perform ADL's Conduct patient checks and document Observation sheet: Q15 minutes Maintain personal safety: every shift Educate patient to report safety concerns to staff, every shift Monitor environment for contraband/sharps Medication safety: Monitor for expected outcome, potential side effects: every shift, Assess barriers to learning: every shift, Assess readiness for medication education: every shift
[2018-11-24] MEDS ORDERED: Magnesium Hydroxide Susp 30 ml UD PO PRN (21:24)
[2018-11-25 14:39] VITALS: O2SAT 97
--- NOTE | 2018-11-25 21:16 | PCM.PSYCH ---
Initial Psychiatric Evaluation - Initial Psychiatric Evaluation Chief Complaint (in patient's own words): I am going through withdrawals History of Present Illness and Precipitating Events: Patient is a 28 y/o female who self referred to the ER for heroin detox. Patient has had multiple detoxes in the past. Patient is complaining of withdrawal symptoms such as hot flashes, yawning sneezing, teary, insomnia and generalized pain . She admits to using 27 bags of heroin per day, intravenously for the last 7 years, last use was the night before yesterday. Patient reports snorting cocaine every other weekend, and daily use of marijuana about Patient has 3 children, 2 of which are with her partner. 1 child is in [facility] care. Otherwise patient denies any fevers or chills. Patient denies suicidal ideations, attempts gestures, plan or intent at the time of interview. Patient denies homicidal ideations, attempts, gestures, plan or intent at the time of interview. Patient reported poor sleep and denies any changes in current appetite. Patient denies any perceptual disturbances at the time of interview. Patient noted with irritable and a labile affect. Current Medications: Active Medications Generic Name Dose Route Start Last Admin Trade Name Freq PRN Reason Stop Dose Admin Clonidine HCl 0.1 mg 11/24/18 21:24 11/25/18 17:28 Catapres PO 0.1 mg Q4 PRN Administration COWS Score More or Equal to 5 Dicyclomine HCl 10 mg 11/24/18 21:25 Bentyl PO Q6 PRN Muscle spasm Hydroxyzine HCl 50 mg 11/24/18 21:29 11/25/18 17:28 Atarax PO 50 mg Q6H PRN Administration Anxiety Loperamide HCl 2 mg 11/24/18 21:24 Imodium PO Q8 PRN Diarrhea Magnesium Hydroxide 30 ml 11/24/18 21:24 Milk Of Magnesia PO 11/27/18 10:01 BID PRN Constipation Methadone HCl 20 mg 11/25/18 10:00 11/25/18 10:12 Methadone PO 11/29/18 09:59 20 mg Q24H RADHA Administration Taper Nicotine 1 patch 11/25/18 10:00 11/25/18 09:52 Nicoderm Cq TD Not Given DAILY RADHA Ondansetron HCl 4 mg 11/24/18 21:24 Zofran Tab PO Q8 PRN Nausea/Vomiting Trazodone HCl 100 mg 11/24/18 21:27 11/24/18 21:57 Desyrel PO 100 mg HS PRN Administration Sleep Past Psychiatric History - Past Psychiatric History Previous Treatment History: Inpatient Prior Psychiatric Treatment: [facility] Detox multiple times Nature of Treatment: Detox History of Abuse: Denies History of ETOH/Drug Use: Utox positive for Opiates and THC History of Family Illness: Denies Pertinent Medical Hx (Current Medical&Sleep Prob, Allergies): Allergies Allergy/AdvReac Type Severity Reaction Status Date / Time No Known Allergies Allergy Verified 11/24/18 15:05 No Known Home Med 11/24/18 Review of Systems - Psychiatric Psychiatric: Abnormal Sleep Pattern, Anxiety, Behavioral Changes, Difficulty Concentrating, Hopelessness, Irritability Mental Status Examination - Personal Presentation Personal Presentation: Looks older than stated age - Affect Affect: Constricted - Motor Activity Motor Activity: Calm - Reliability in Providing Information Reliability in Providing Information: Good - Speech Speech: Organized - Mood Mood: Depressed, Anxious - Formal Thought Process Formal Thought Process: No Impairment - Hallucinations/Delusions Delusions: Other Additional comments: Denies - Obsessions/Compulsions Obsessions: No Compulsions: No - Cognitive Functions Orientation: Person, Place, Situation, Time Sensorium: Alert Attention/Concentration: Attentive Abstract Thinking: [place] Estimate of Intelligence: Average Judgement: Imparied, as evidence by: Lack of insight into illness Memory: Recent intact, as evidence by: Ability to recall events of the day - Risk Risk: Withdrawal, Diminished functioning - Strength & Assets Inventory Strength & Assets Inventory: Family support DSM 5 DX - DSM 5 DSM 5 Diagnosis: Opioid Withdrawal Opioid Use Disorder - Severe Cannabis Use Disorder - Moderate Depressive Disorder, Unspecified Substance induced Depression Generalized Anxiety Disorder - Recommended/Plan of Treatment Treatment Recommendations and Plan of Treatment: Taper with Methadone As needed medications All risks, benefits and alternatives of the medications discussed, and the patient agreed and understood Attend group activities Supportive therapy and psychoeducation [place] for abstinence CBT for relapse prevention Encourage MAT Refer to rehab or IOP, self-help groups Smoking cessation with [place] Nicotine Patch daily [place] for encouraging patient to go into prison rehab to prevent relapse Encouraging her family's involvement in care post-detox for support Projected ELOS: 5 Days Discharge Plan and Discharge Criteria: Rehab or IOP - Smoking Cessation Smoking Cessation Initiated: Yes
[2018-11-26 09:13] VITALS: BP 127/81; PULSE 87; RESP 18; TEMP 97.6
--- NOTE | 2018-11-26 17:54 | PCM.PYCHDC ---
Mental Status Examination - Mental Status Examination Orientation: Person, Place, Situation, Time Memory: Intact Mood: Anxious Affect: Constricted Speech: Appropriate, Soft Attention: WNL Concentration: WNL Association: WNL Fund of Knowledge: WNL Formal Thought Process: No Impairment Description of patient's judgement and insight: Impaired Psychotic Thoughts and Behaviors: Denies Suicidal Ideation: No Current Homicidal Ideation?: No Plan: Patient left AMA Discharge Summary - Discharge Note Psychiatric History (includes Medical, Family, Personal Hx): Detox Consultations:: List each consultation separately and include: 1. Reason for request. 2. Findings. 3. Follow-up Summary of Hospital Course include:: 1. Description of specific treatment plan utilized for patients during their course of treatmen. 2. Summarize the time- course for resolution of acute symptoms and/or regressed behaviors. 3. Describe issues identified and worked on during hospitalization. 4. Describe medication utilized. 5. Describe medical problems identified and treated. 6. Reassessment of suicide risk Summary of Hospital Course: Patient is a 28 y/o female who self referred to the ER for heroin detox. Patient has had multiple detoxes in the past. Patient is complaining of withdrawal symptoms such as hot flashes, yawning sneezing, teary, insomnia and generalized pain . She admits to using 27 bags of heroin per day, intravenously for the last 7 years, last use was the night before yesterday. Patient reports snorting cocaine every other weekend, and daily use of marijuana about Patient has 3 children, 2 of which are with her partner. 1 child is in [facility]CP[facility] care. Otherwise patient denies any fevers or chills. Patient denies suicidal ideations, attempts gestures, plan or intent at the time of interview. Patient denies homicidal ideations, attempts, gestures, plan or intent at the time of interview. Patient reported poor sleep and denies any changes in current appetite. Patient denies any perceptual disturbances at the time of interview. Patient noted with irritable and a labile affect. 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
== END 2018-11-26 09:20 | disposition left against medical advice (07) | DRG 743 ==
LOC: C.ER 14:49 → C.7D 18:24
PROVIDERS: ADMIT Psychiatry & Neurology Psychiatry; ATTEND Psychiatry & Neurology Psychiatry
PROC: HZ52ZZZ Individual Psychotherapy for Substance Abuse Treatment, Cognitive-Behavioral (ICD-10-PCS; principal; 2018-11-24)
PROC: HZ2ZZZZ Detoxification Services for Substance Abuse Treatment (ICD-10-PCS; 2018-11-24)
PROC: HZ59ZZZ Individual Psychotherapy for Substance Abuse Treatment, Supportive (ICD-10-PCS; 2018-11-24)
PROC: HZ56ZZZ Individual Psychotherapy for Substance Abuse Treatment, Psychoeducation (ICD-10-PCS; 2018-11-24)
PROC: HZ42ZZZ Group Counseling for Substance Abuse Treatment, Cognitive-Behavioral (ICD-10-PCS; 2018-11-24)
PROC: HZ46ZZZ Group Counseling for Substance Abuse Treatment, Psychoeducation (ICD-10-PCS; 2018-11-24)
PROC: GZHZZZZ Group Psychotherapy (ICD-10-PCS; 2018-11-24)
PROC: GZ58ZZZ Individual Psychotherapy, Cognitive-Behavioral (ICD-10-PCS; 2018-11-24)
PROC: GZ56ZZZ Individual Psychotherapy, Supportive (ICD-10-PCS; 2018-11-24)
DX: F11.23 Opioid dependence with withdrawal (principal); F12.20 Cannabis dependence, uncomplicated; F41.1 Generalized anxiety disorder; F14.10 Cocaine abuse, uncomplicated; G47.00 Insomnia, unspecified; J45.909 Unspecified asthma, uncomplicated; F32.89 Other specified depressive episodes